=== PATIENT | female | born 1930 | race Caucasian/White ===

== ENCOUNTER → 2016-12-04 | Outpatient (CLI) | payer OTHER ==
[~2016-12-04] MED LIST: CALC-51; LABE200T24 PO; LEVO125T5 PO; LOSA1TAB PO; METF-384 PO; MULT-506 PO; OMEG10007 PO; SIMV20TA2 PO
[2016-12-04 13:38] LABS: BLOOD UREA NITROGEN 19 mg/dl (7-18); BUN/CREATININE RATIO 19.3 (10-20); CARBON DIOXIDE 29 mmol/L (21-32); CHLORIDE 104 mmol/L (98-107); CREATININE 0.97 mg/dl (0.60-1.20); GLUCOSE 92 mg/dl (70-99); SODIUM 142 mmol/L (136-145)
[2016-12-04 13:42] LABS: CHOLESTEROL 169 mg/dl (0-200); CHOLESTEROL/HDL RATIO 2.5; HDL CHOLESTEROL 67 mg/dl; TRIGLYCERIDES 107 mg/dl (0-150); VERY LOW DENSITY LIPOPROT CALC 21 mg/dl
[2016-12-04 13:53] LABS: ESTIMATED AVERAGE GLUCOSE 134 mg/dl; HA1C FLAG Normal (Normal)
--- NOTE | 2016-12-08 07:57 | CODING QUERY MEDICAL NECESSITY ---
SUPPORTING DIAGNOSIS NEEDED A supporting diagnosis is required for the test/procedure performed on this patient in order for us to be reimbursed by the patient's insurance. Please provide a supporting diagnosis for the following test/procedure listed below next to the test name along with your signature. *If there is no additional diagnosis for this patient that would support the following test/procedure please document that below next to the test/procedure. Test(s)/Procedure(s) that require a supporting diagnosis: DOS 12/04 * Hba1c DIAGNOSIS: Provider Signature: Date: Thank you Yahaira Thacker [facility] Information Management Once completed, please kindly fax back to [phone] For questions please call [phone]
== END | disposition home or self-care (01) ==
LOC: C.LABSPEC 12:34
PROVIDERS: ATTEND Internal Medicine
DX: I10 Essential (primary) hypertension (principal); E78.5 Hyperlipidemia, unspecified; E66.9 Obesity, unspecified; E11.9 Type 2 diabetes mellitus without complications

== ENCOUNTER → 2017-04-23 | Outpatient (CLI) | payer OTHER ==
[2017-04-23 16:22] LABS: BASO % 0.3 %; BASO ABS # 0.03 K/uL (0-0.2); COMPLETE YES; HEMATOCRIT 41.9 % (37-47); IG% 0.1 %; LYMPH % 18.7 %; LYMPH ABS # 1.61 K/uL (1.2-3.4); MEAN CELL VOLUME 91.7 fL (80-100); MEAN CORPUSCULAR HEMOGLOBIN 30.9 pg (25-34); MEAN CORPUSCULAR HGB CONC 33.7 g/dl (32-36); MEAN PLATELET VOLUME 11.7 fL (7.4-10.4); NEUT % 72.9 %; PLATELET COUNT 198 K/uL (130-400); RED BLOOD COUNT 4.57 M/uL (4.2-5.4); WHITE BLOOD COUNT 8.62 K/uL (4.8-10.8)
[2017-04-23 16:32] LABS: ALT/SGPT 15 U/L (12-78); AST/SGOT 13 U/L (15-37); BLOOD UREA NITROGEN 14 mg/dl (7-18); BUN/CREATININE RATIO 15.7 (10-20); CALCIUM 8.8 mg/dl (8.5-10.1); CARBON DIOXIDE 30 mmol/L (21-32); CHLORIDE 106 mmol/L (98-107); GLUCOSE 134 mg/dl (70-99); POTASSIUM 3.9 mmol/L (3.5-5.1); SODIUM 143 mmol/L (136-145)
[2017-04-23 16:43] LABS: ALB/GLOB RATIO 1.5 (0.9-2); ALKALINE PHOSPHATASE 92 U/L (45-117); THYROID STIMULATING HORMONE 0.021 uIu/ml (0.300-4.500)
[2017-04-24 06:46] LABS: ESTIMATED AVERAGE GLUCOSE 137 mg/dl; HA1C FLAG Normal (Normal)
--- NOTE | 2017-05-19 13:10 | CODING QUERY MEDICAL NECESSITY ---
SUPPORTING DIAGNOSIS NEEDED A supporting diagnosis is required for the test/procedure performed on this patient in order for us to be reimbursed by the patient's insurance. Please provide a supporting diagnosis for the following test/procedure listed below next to the test name along with your signature. *If there is no additional diagnosis for this patient that would support the following test/procedure please document that below next to the test/procedure. Test(s)/Procedure(s) that require a supporting diagnosis: * VITAMIN B12 DIAGNOSIS: Provider Signature: Date: Thank you Gloria [facility] [place] Information [facility] Once completed, please kindly fax back to [phone] For questions please call [phone]
== END | disposition home or self-care (01) ==
LOC: C.LABSPEC 15:00
PROVIDERS: ATTEND Internal Medicine
DX: E11.9 Type 2 diabetes mellitus without complications (principal); R53.83 Other fatigue; R41.89 Other symptoms and signs involving cognitive functions and awareness; F03.90 Unspecified dementia, unspecified severity, without behavioral disturbance, psychotic disturbance, mood disturbance, and anxiety

== ENCOUNTER → 2017-10-19 | Outpatient (CLI) | payer OTHER ==
[2017-10-19 18:33] LABS: BASO % 0.2 %; BASO ABS # 0.02 K/uL (0-0.2); COMPLETE YES; EOS % 1.3 %; HEMATOCRIT 41.3 % (37-47); IG% 0.1 %; LYMPH % 27.8 %; LYMPH ABS # 2.44 K/uL (1.2-3.4); MEAN CORPUSCULAR HEMOGLOBIN 30.4 pg (25-34); MEAN CORPUSCULAR HGB CONC 34.1 g/dl (32-36); MEAN PLATELET VOLUME 10.8 fL (7.4-10.4); MONO % 8.4 %; NEUT % 62.2 %; PLATELET COUNT 209 K/uL (130-400); RED BLOOD COUNT 4.64 M/uL (4.2-5.4); WHITE BLOOD COUNT 8.77 K/uL (4.8-10.8)
[2017-10-19 18:42] LABS: ALT/SGPT 14 U/L (12-78); AST/SGOT 13 U/L (15-37); BLOOD UREA NITROGEN 21 mg/dl (7-18); BUN/CREATININE RATIO 20.7 (10-20); CARBON DIOXIDE 29 mmol/L (21-32); CHLORIDE 103 mmol/L (98-107); CREATININE 1.03 mg/dl (0.60-1.20); GLUCOSE 104 mg/dl (70-99); POTASSIUM 3.9 mmol/L (3.5-5.1); SODIUM 141 mmol/L (136-145)
[2017-10-19 18:53] LABS: ALB/GLOB RATIO 1.4 (0.9-2); ALKALINE PHOSPHATASE 91 U/L (45-117); THYROID STIMULATING HORMONE 0.072 uIu/ml (0.300-4.500)
[2017-10-20 06:33] LABS: ESTIMATED AVERAGE GLUCOSE 140 mg/dl; HA1C FLAG Normal (Normal)
== END | disposition home or self-care (01) ==
LOC: C.LABSPEC 17:52
PROVIDERS: ATTEND Internal Medicine
DX: I10 Essential (primary) hypertension (principal); E11.9 Type 2 diabetes mellitus without complications; E03.9 Hypothyroidism, unspecified; R41.3 Other amnesia

== ENCOUNTER → 2017-10-20 | Outpatient (CLI) | payer OTHER ==
[2017-10-20 18:40] LABS: URINE APPEARANCE CLEAR (CLEAR); URINE BILIRUBIN NEG (NEG); URINE COLOR YELLOW; URINE NITRITE NEG (NEG); URINE SPECIFIC GRAVITY 1.023 (1.000-1.030); UROBILINOGEN NEG (NEG)
[2017-10-20 18:46] LABS: MANUAL MICROSCOPIC REQUIRED? NO; REVIEW REQ? NO
== END | disposition home or self-care (01) ==
LOC: C.LABSPEC 17:44
PROVIDERS: ATTEND Internal Medicine
DX: N39.0 Urinary tract infection, site not specified (principal)

== ENCOUNTER → 2017-10-28 | Outpatient (CLI) | payer OTHER ==
[~2017-10-28] MED LIST changes: +OPTIRAY 320 IV PRN
--- NOTE | 2017-10-28 09:40 | DIAGNOSTIC IMAGING REPORT ---
CT SCAN OF THE BRAIN COMBO CLINICAL HISTORY: Memory loss. Mental status change. COMPARISON STUDY: CT angiogram of the brain dated 03/23/2016. TECHNIQUE: Axial CT scan of the brain is performed from the vertex to the skull base before and following the IV administration of 94 cc of Optiray 320. IV contrast was administered without complication. CT DOSE: 1074.96 mGy.cm FINDINGS: Brain parenchyma: There are age-related involutional changes noting moderate patchy subcortical and periventricular microangiopathic change. There is no hemorrhage, mass effect, or evidence of acute territorial ischemia by CT criteria. Velez-white matter is preserved. No extra-axial fluid collection is seen. A 1.5 cm lipoma is incidentally noted along the midline falx at the vertex. Ventricles, sulci, cisterns: Prominent secondary to involutional change. Intracranial vasculature: There is atherosclerotic calcification of the cavernous carotid and vertebral arteries. Calvarium: Unremarkable. Sinuses and mastoids: The visualized paranasal sinuses are clear. The mastoid air cells are well pneumatized. Orbits: The bony orbits are grossly intact. IMPRESSION: Senescent changes as above with no hemorrhage, enhancing mass, or evidence of acute territorial ischemia by CT criteria. Electronically signed by: García Avila M.D. 10/28/2017 9:38 AM Dictated Date/Time: 10/28/2017 9:35 AM
== END | disposition home or self-care (01) ==
LOC: C.CTS 09:11
PROVIDERS: ATTEND Internal Medicine
DX: R41.82 Altered mental status, unspecified (principal)

== ENCOUNTER → 2018-02-25 | Outpatient (CLI) | payer OTHER ==
[~2018-02-25] MED LIST changes: -OPTIRAY 320 IV PRN
[2018-02-25 17:45] LABS: BLOOD UREA NITROGEN 17 mg/dl (7-18); CALCIUM 9.2 mg/dl (8.5-10.1); CARBON DIOXIDE 31 mmol/L (21-32); CREATININE 0.98 mg/dl (0.60-1.20); GLUCOSE 158 mg/dl (70-99); SODIUM 138 mmol/L (136-145)
== END | disposition home or self-care (01) ==
LOC: C.LABSPEC 16:39
PROVIDERS: ATTEND Internal Medicine
DX: E11.9 Type 2 diabetes mellitus without complications (principal); I10 Essential (primary) hypertension; E03.9 Hypothyroidism, unspecified

== ENCOUNTER → 2018-06-28 | Outpatient (CLI) | payer OTHER ==
[~2018-06-28] MED LIST changes: -LABE200T24 PO; +LABE200T5 PO
[2018-06-28 17:52] LABS: BASO % 0.7 %; BASO ABS # 0.04 K/uL (0-0.2); EOS ABS # 0.06 K/uL (0-0.5); HEMATOCRIT 41.9 % (37-47); HEMOGLOBIN 14.1 g/dL (12.0-16.0); LYMPH % 32.9 %; LYMPH ABS # 1.99 K/uL (1.2-3.4); MEAN CELL VOLUME 90.9 fL (80-100); MEAN CORPUSCULAR HEMOGLOBIN 30.6 pg (25-34); MEAN CORPUSCULAR HGB CONC 33.7 g/dl (32-36); MEAN PLATELET VOLUME 11.4 fL (7.4-10.4); MONO % 6.8 %; MONO ABS # 0.41 K/uL (0.11-0.59); NEUT % 58.6 %; NEUT ABS # 3.54 K/uL (1.4-6.5); PLATELET COUNT 189 K/uL (130-400); RED CELL DISTRIBUTION WIDTH CV 13.2 % (11.5-14.5); RED CELL DISTRIBUTION WIDTH SD 43.6 fL (36.4-46.3); WHITE BLOOD COUNT 6.04 K/uL (4.8-10.8)
[2018-06-28 18:25] LABS: ALBUMIN 4.2 gm/dl (3.4-5.0); ALKALINE PHOSPHATASE 88 U/L (45-117); ALT/SGPT 15 U/L (12-78); AST/SGOT 15 U/L (15-37); BLOOD UREA NITROGEN 16 mg/dl (7-18); CALCIUM 8.6 mg/dl (8.5-10.1); CARBON DIOXIDE 27 mmol/L (21-32); CHOLESTEROL 164 mg/dl (0-200); CREATININE 1.04 mg/dl (0.60-1.20); GLUCOSE 123 mg/dl (70-99); LDL CHOLESTEROL (DIRECT) 89 mg/dl; SODIUM 140 mmol/L (136-145); TOTAL PROTEIN 7.2 gm/dl (6.4-8.2)
[2018-06-29 06:36] LABS: HEMOGLOBIN A1C 6.4 % (4.5-5.6)
== END | disposition home or self-care (01) ==
LOC: C.LABSPEC 17:25
PROVIDERS: ATTEND Internal Medicine
DX: I10 Essential (primary) hypertension (principal); E78.5 Hyperlipidemia, unspecified; E11.9 Type 2 diabetes mellitus without complications; E03.9 Hypothyroidism, unspecified

== ENCOUNTER 2019-12-05 13:25 | Inpatient (IN) ==
--- OUTSIDE RECORDS SUMMARY | 2019-12-05 13:30 | External Medical Summary | Continuity of Care Document ---
:1930 Author Name Kirsten Zabala Address Unavailable Unavailable , Care Team Providers Name Role Phone Unavailable Unavailable Unavailable Cortney Lancaster M.D. Unavailable [email or web address] Unavailable Unavailable Unavailable Unavailable Unavailable Problems Female genital symptoms (625.9) (N94.9) Hypertension (401.9) (I10) Otitis externa (380.10) (H60.90) Sensorineural hearing loss (389.10) (H90.5) Eustachian tube dysfunction (381.81) (H69.80) Hypercholesterolemia (272.0) (E78.00) Cerumen impaction (380.4) (H61.20) Encounter for routine gynecological examination (V72.31) (Z0 1.419) Hearing loss (389.9) (H91.90) Conductive hearing loss (389.00) (H90.2) Hypothyroidism (244.9) (E03.9) Diabetes mellitus (250.00) (E11.9) Functional Status Hearing loss Allergies and Adverse Reactions No Known Drug Allergies (Allergy) Medications metFORMIN HCl - 500 MG Oral Tablet , M.D. Refills: 0 Simvastatin 20 MG Oral Tablet , M.D. Refills: 0 Levothyroxine Sodium 125 MCG Oral Tablet , M.D. Refills: 0 Labetalol HCl - 200 MG Oral Tablet , M.D. Refills: 0 Calcium 600 + D TABS , M.D. Refills: 0 Multivitamins TABS , M.D. Refills: 0 Fish Oil OIL , M.D. Refills: 0 Triamcinolone Acetonide 0.5 % External C ream; APPLY SPARINGLY AND MASSAGE IN TWICE DAILY. Vj Lancaster Start: 18-Mar-2011 Quantity: 2 15 GM Tube Refills: 2 Procedures History of Total Abdominal Hysterectomy Status: Completed History of Biopsy Breast Open Status: Co mpleted History of Complete Colonoscopy Status: Completed Immunizations Influenza Comments:denies rece iving in 2010 Social History - Smoking Status Never smoker Plan of Treatment Planned Observations Planned Goals not documented Results No Known Results Results not documented
[2019-12-05 14:12] LABS: Hematocrit (blood only) 39.5 % (37-47); Hemoglobin 13.8 g/dL (12.0-16.0); Immature Granulocytes # (auto) 0.06 K/uL (0.00-0.02); Immature Granulocytes % (auto) 0.5 %; Lymphocytes # (auto) 0.68 K/uL (1.2-3.4); Lymphocytes % (auto) 5.3 %; Mean Corpuscular Hemoglobin 30.9 pg (25-34); Mean Corpuscular Hgb Conc 34.9 g/dL (32-36); Mean Corpuscular Volume 88.6 fL (80-100); Mean Platelet Volume 10.2 fL (7.4-10.4); Monocytes # (auto) 1.12 K/uL (0.11-0.59); Monocytes % (auto) 8.8 %; Neutrophils # (auto) 10.94 K/uL (1.4-6.5); Neutrophils % (auto) 85.4 %; Platelet Count 155 K/uL (130-400); RDW Coefficient of Variation 12.8 % (11.5-14.5); RDW Standard Deviation 41.4 fL (36.4-46.3); Red Blood Count 4.46 M/uL (4.2-5.4)
[2019-12-05] MEDS ORDERED: ACETAMINOPHEN 325 MG TAB PO STA (14:13)
[2019-12-05] MEDS ORDERED: SODIUM CHLORIDE 0.9% 1000ML 1,000 ML IV SCH ×2 (14:15→21:14)
[2019-12-05 14:25] LABS: Albumin Level 3.8 gm/dl (3.4-5.0); BUN Creatinine Ratio 22.7 (10-20); Creatinine Clr Calc Pharmacy 34.6 ml/min; Est GFR (African American) 59.4; Est GFR (Non-African American) 51.2; Potassium 3.8 mmol/L (3.5-5.1)
[2019-12-05 14:28] LABS: Albumin Globulin Ratio 1.1 (0.9-2); Bilirubin,Total 1.4 mg/dl (0.2-1); Globulin 3.3 gm/dl (2.5-4.0); Total Protein 7.1 gm/dl (6.4-8.2)
[2019-12-05 14:29] LABS: INR 1.1 (0.9-1.1); Partial Thromboplastin Time 26.2 Seconds (21.0-31.0); Prothrombin Time 11.5 Seconds (9.0-12.0)
--- NOTE | 2019-12-05 15:22 | CT Scan Report ---
CT head/brain wo con CT DOSE: HISTORY: Trauma. Mental status change. s/p fall, likely down stairs TECHNIQUE: Multiaxial CT images of the head were performed without the use of intravenous contrast. A dose lowering technique was utilized adhering to the principles of ALARA. Comparison: None. Findings: Significant mucosal thickening right maxillary sinus. Mild mucosal thickening ethmoid sinus es. Mastoid air cells are considered clear. Chronic and age-related changes of the brain are unaltered from the prior exam. No evidence for acute intracranial hemorrhage. No midline shift. Impression: No acute intracranial abnormality. Chronic and age-related change. ACT 112: Negative or not required by law. The above report was generated using voice recognition software. It may contain grammatical, syntax or spelling errors. Electronically signed by: Jay Mattson M.D. 12/05/2019 3:21 PM
--- NOTE | 2019-12-05 15:26 | CT Scan Report ---
CT cervical spine wo con CT DOSE: 924.94 mGy.cm HISTORY: Trauma. Pain. s/p fall, likely down stairs TECHNIQUE: Multiaxial CT images of the cervical spine were performed and reformatted in the sagittal and coronal plane without the use of contrast. A dose lowering technique was utilized adhering to e principles of ALARA. COMPARISON: None. FINDINGS: Vertebral body stature is unremarkable. No evidence for vertebral body compression deformit y. There are fractures of the spinous processes of C5-C6 and C7. The posterior and lateral elements are intact throughout. Lumbar apices show minimal apical fibrotic change. IMPRESSION: 1. Fractures of the spinous processes of C5, C6, and C7.. 2. No additional acute bony abnormality. 3. No evidence for compression deformity. ACT 112: Negative or not required by law. The above report was generated using voice recognition software. It may contain grammatical, syntax or spelling errors. Electronically signed by: Jay Mattson M.D. 12/05/2019 3:24 PM
--- NOTE | 2019-12-05 15:44 | Electrocardiogram Report ---
Test Reason : Blood Pressure : / mmHG Vent. Rate : 068 BPM Atrial Rate : 068 BPM P-R Int : 154 ms QRS Dur : 074 ms QT Int : 400 ms P-R-T Axes : 048 030 058 degrees QTc Int : 425 ms Normal sinus rhythm Nonspecific T wave abnormality Abnormal ECG When compared with ECG of 23-MAR-2016 11:43, T wave inversion no longer evident in Inferior leads Confirmed by Edward Coleman ([id number]) on 12/05/2019 3:44:20 PM Referred By: Confirmed By:Edward Coleman
--- NOTE | 2019-12-05 16:14 | Emergency Department Note ---
Entered by Nehal Clemente acting as a scribe for History of Present Illness General Chief complaint: Fall Time Seen by Provider: 12/05/19 14:02 History of Present Illness Provider complaint: fall Onset (ago): unknown Pain Consistency: + other (episode) Maximum Pain Intensity: 5 Quality: + other (fall) Associated symptoms: + denies other symptoms (abdominal pain, head pain) and + other (found at bottom of stairs covered in urine, fell down approximately 5-6 steps, left wrist pain, left rib pain); no chest pain and no shortness of breath Treatments prior to arrival: none The patient is an 89 year old white female w/ PMHx of dementia and type 2 diabetes who presents to the ED w/ CC of an episode of a fall beginning at an unknown time. The patients son states that he called the patient at 1115 this morning but she did not answer the phone. Per son, when he checked on the patie nt at 1130, he found her laying at the bottom of the staircase saturated in urine. The patient states that she does not remember falling or hitting her head. The patients son states that he believes the patient fell down approximately 5-6 steps. The patient states that she has some left wrist and l eft rib pain. The patient denies abdominal pain, chest pain, head pain and shortness of breath. The patient states that she has not yet eaten anything today. The patient denies receiving any treatments prior to arrival. Per son, the patient seemed totally fine yesterday when he checked on her. Home Medications Home Medications Medication Instructions Recorded Confirmed Type escitalopram oxalate 10 mg PO DAILY 12/05/19 12/05/19 History levothyroxine 125 mcg PO DAILY 12/05/19 12/05/19 History losartan 25 mg PO DAILY 12/05/19 12/05/19 History metformin 500 mg PO PM 12/05/19 12/05/19 History simvastatin 20 mg PO HS 12/05/19 12/05/19 History Allergies Allergy/AdvReac Type Severity Reaction Status Date / Time No Known Allergies Allergy Unverified 12/05/19 13:50 Past Med/Surg History Social History Preferred Language: Faroese Communication Ability: Effective Supervisor Functional Testing Required: No Beliefs That Will Affect Care: None Current Living Situation: Alone Other Information That Helps Us Care for You: No Feels Safe at Home: Yes Safety Concerns: Feels Safe At This Time Smoking Status: Never smoker Hx Alcohol Use: No Hx Substance Use: No Review of Systems See HPI for pertinent positives & negatives. and A total of 10 systems reviewed and were otherwise negative Physical Exam Vital Signs Vital Signs - 24 hr 12/05/19 13:33 12/05/19 14:30 12/05/19 16:17 Temperature 36.4 C L Temperature Source Oral Pulse Rate 77 Pulse Rate [Apical] 70 77 Pulse Rhythm Regular Pulse Rhythm [Apical] Regular Respiratory Rate 17 17 18 Respiratory Effort / Characteristics Non-Labored Spontaneous Non-Labored Spontaneous Respiratory Depth Normal Normal Respiratory Pattern Regular Regular Blood Pressure 168/88 H Blood Pressure [Left Arm] 198/96 H 207/86 H Blood Pressure Mean 114 Blood Pressure Mean [Left Arm] 130 126 Pulse Oximetry 94 93 95 Oxygen Delivery Method Room Air Room Air Sepsis Recent Fever Within 48 Hours No Sepsis New/Unexplained Change in Mental Status No Sepsis Action Taken by Nursing No Action Required 12/05/19 19:34 Temperature Temperature Source Pulse Rate Pulse Rate [Apical] 76 Pulse Rhythm Pulse Rhythm [Apical] Respiratory Rate 18 Respiratory Effort / Characteristics Respiratory Depth Respiratory Pattern Blood Pressure Blood Pressure [Left Arm] 176/90 H Blood Pressure Mean Blood Pressure Mean [Left Arm] 118 Pulse Oximetry 99 Oxygen Delivery Method Sepsis Recent Fever Within 48 Hours Sepsis New/Unexplained Change in Mental Status Sepsis Action Taken by Nursing GENERAL: Well appearing, well nourished, NAD, non-toxic. EYE EXAM: Normal conjunctiva. PERRL, no anisocoria and EOM's grossly intact w/o pain. OROPHARYNX: Moist mucous membranes. Grossly normal dentition. NECK: Supple, no nuchal rigidity, no adenopathy, non-tender. No signs of meningismus. No midline c-spine TTP. LUNGS: Clear to auscultation. Normal chest wall mechanics. HEART: NSR, no MRG. CHEST: Left lateral chest wall tenderness without bruising or crepitus. ABDOMEN: Abdomen soft, non-tender, normo-active bowel sounds, no masses, no rebound or guarding. BACK: No CVA TTP. SKIN: No rashes and no bruising. UPPER EXTREMITIES: Bilateral wrist ecchymosis TTP with mild swelling to the left wrist. LOWER EXTREMITIES: No obvious deformities to the lower extremities. No pitting edema. No calf pain. NEURO EXAM: A&O x3, cranial nerves II-XII grossly intact, normal speech, moves all 4 extremities on command w/o issue. Procedures Free Text Procedures Definitive Fracture Care note: Dx: L radial head fracture Plan: Immobilization, rest, ice, elevation, analgesia, orthopedic follow up. Splinting Note: Dx: L radial head fracture Procedure: Splinting Indication: L radial head fracture Verbal consent obtained. Risks and benefits were explained with the usual customary discussion. The injured extremity was identified. The patient was prepped and measured for the placement of a sugar tong ortho-glass splint. Splint applied in the standard fashion over a layer of webril and secured using an elastic bandage w/ the assistance of the electronic service technician. Set into a position of function. Normal neurovascular status after placement verified by me. The p atient tolerated the procedure well and the care of the splint was discussed with the patient/family. No complications. Definitive Fracture Care note: Dx: R radial head fracture Plan: Immobilization, rest, ice, elevation, analgesia, orthopedic follow. Splinting Note: Dx: R radial head fracture Procedure: Indication: R radial head fracture Verbal consent obtained. Risks and benefits were explained with the usual customary discussion. The injured extremity was identified. The patient was prepped and measured for the placement of a wrist up volar ortho-glass splint. Splint applied in the standard fashion over a layer of webril and secured using an elastic bandage w/ assistance of the electronic service technician. Set into a position of function. Normal neurovascular status after placement verified by me. The patient tolerated the procedure well and the care of the splint was discussed with the patient/family. No complications. Course Course 1404: Past medical records reviewed. The patient was evaluated in room C04. A complete history and physical exam was performed. 1410: The patient was put on a surveillance monitor at this time. 1652: I updated the patient on the test results. She is resting comfortably. 1654: Case management will talk to the patient in regard to admission. 1708: I discussed the patients case with Dr. Randall [facility] Hospitalist. She will evaluate the patient for further management. Consultations Consultation #1: I discussed the patients case with Dr. Randall [facility]. She will evaluate the patient for further management. Time: 17:08 Administered Medications Calcitonin Cascade (Fortical) 1 sprays NA DAILY WILL Stop: 01/04/20 21:13 Last Admin: 12/05/19 21:40 Dose: 1 sprays Documented by: [id number] Escitalopram Oxalate (Lexapro Tab) 10 mg PO DAILY WILL Stop: 01/04/20 21:13 Last Admin: 12/05/19 21:40 Dose: 10 mg Documented by: [id number] Sodium Chloride (Nss 1000ml) 1,000 mls @ 80 mls/hr IV .[id number] WILL Stop: 12/06/19 09:43 Last Admin: 12/05/19 21:40 Dose: 80 mls/hr Documented by: [id number] Losartan Potassium (Cozaar) 25 mg PO DAILY WILL Stop: 01/04/20 21:13 Last Admin: 12/05/19 21:40 Dose: 25 mg Documented by: [id number] Simvastatin (Zocor) 20 mg PO HS WILL Stop: 01/04/20 21:13 Last Admin: 12/05/19 21:55 Dose: 20 mg Documented by: [id number] Discontinued Medications Acetaminophen (Tylenol) 650 mg PO NOW STA Stop: 12/05/19 14:14 Last Admin: 12/05/19 14:24 Dose: 650 mg Documented by: [id number] Sodium Chloride (Nss 1000ml) 1,000 mls @ 999 mls/hr IV .[id number] WILL Stop: 12/05/19 15:15 Last Infusion: 12/05/19 16:42 Dose: 0 mls/hr Documented by: [id number] Admin: 12/05/19 14:24 Dose: 999 mls/hr Documented by: [id number] Medical Decision Making Differential Diagnosis Differential diagnosis: Etiologies such as metabolic, infection, hypo/hyperglycemia, electrolyte abnormalities, cardiac sources, intracerebral event, toxicologic, neurologic, fracture, sprain, strain, dehydration as well as others were entertained. Medical Records Attestation: I reviewed the patient's medical records. Home Medications Current Medication List: was personally reviewed by me Laboratory Data Attestation: I reviewed the patient's lab results. Result diagrams: 12/05/19 13:58 12/05/19 13:58 Lab Results 12/05/19 12/05/19 12/05/19 Range/Units 13:58 13:58 13:58 WBC 12.80 H (4.8-10.8) K/uL RBC 4.46 (4.2-5.4) M/uL Hgb 13.8 (12.0-16.0) g/dL Hct 39.5 (37-47) % MCV 88.6 (80-100) fL MCH 30.9 (25-34) pg MCHC 34.9 (32-36) g/dL RDW Std Deviation 41.4 (36.4-46.3) fL RDW Coeff of Hunter 12.8 (11.5-14.5) % Plt Count 155 (130-400) K/uL MPV 10.2 (7.4-10.4) fL Immature Gran % (Auto) 0.5 % Neut % (Auto) 85.4 % Lymph % (Auto) 5.3 % [place] % (Auto) 8.8 % Eos % (Auto) 0.0 % Baso % (Auto) 0.0 % Immature Gran # (Auto) 0.06 H (0.00-0.02) K/uL Neut # (Auto) 10.94 H (1.4-6.5) K/uL Lymph # (Auto) 0.68 L (1.2-3.4) K/uL [place] # (Auto) 1.12 H (0.11-0.59) K/uL Eos # (Auto) 0.00 (0-0.5) K/uL Baso # (Auto) 0.00 (0-0.2) K/uL PT 11.5 (9.0-12.0) Seconds INR 1.1 (0.9-1.1) APTT 26.2 (21.0-31.0) Seconds PTT Ratio 1.0 Sodium 137 (136-145) mmol/L Potassium 3.8 (3.5-5.1) mmol/L Chloride 101 (98-107) mmol/L Carbon Dioxide 28 (21-32) mmol/L Anion Gap 8.0 (3-11) BUN 23 H (7-18) mg/dl Creatinine 0.99 (0.6-1.2) mg/dl Est Cr Clr Drug Dosing 34.6 ml/min Est GFR ( Amer) 59.4 Est GFR (Non-Af Amer) 51.2 BUN/Creatinine Ratio 22.7 H (10-20) Glucose 184 H (70-99) mg/dl Calcium 9.0 (8.5-10.1) mg/dl Total Bilirubin 1.4 H (0.2-1) mg/dl AST 44 H (15-37) U/L ALT 26 (12-78) U/L Alkaline Phosphatase 99 (45-117) U/L Troponin I (0-0.045) ng/ml Total Protein 7.1 (6.4-8.2) gm/dl Albumin 3.8 (3.4-5.0) gm/dl Globulin 3.3 (2.5-4.0) gm/dl Albumin/Globulin Ratio 1.1 (0.9-2) Urine Color Urine Appearance (Clear) Urine pH (4.5-7.5) Ur Specific [place] (1.000-1.030) Urine Protein (Negative) Urine Glucose (UA) (Negative) Urine Ketones (Negative) Urine Blood (Negative) Urine Nitrite (Negative) Urine Bilirubin (Negative) Urine Urobilinogen (Negative) Ur Leukocyte Esterase (Negative) Urine WBC (Auto) (0-5) /hpf Urine RBC (Auto) (0-4) /hpf U Hyaline Cast (Auto) (0-5) /lpf U Epithel Cells (Auto) (0-5) /lpf Urine Bacteria (Auto) (Negative) 12/05/19 12/05/19 Range/Units 13:58 17:04 WBC (4.8-10.8) K/uL RBC (4.2-5.4) M/uL Hgb (12.0-16.0) g/dL Hct (37-47) % MCV (80-100) fL MCH (25-34) pg MCHC (32-36) g/dL RDW Std Deviation (36.4-46.3) fL RDW Coeff of Hunter (11.5-14.5) % Plt Count (130-400) K/uL MPV (7.4-10.4) fL Immature Gran % (Auto) % Neut % (Auto) % Lymph % (Auto) % [place] % (Auto) % Eos % (Auto) % Baso % (Auto) % Immature Gran # (Auto) (0.00-0.02) K/uL Neut # (Auto) (1.4-6.5) K/uL Lymph # (Auto) (1.2-3.4) K/uL [place] # (Auto) (0.11-0.59) K/uL Eos # (Auto) (0-0.5) K/uL Baso # (Auto) (0-0.2) K/uL PT (9.0-12.0) Seconds INR (0.9-1.1) APTT (21.0-31.0) Seconds PTT Ratio Sodium (136-145) mmol/L Potassium (3.5-5.1) mmol/L Chloride (98-107) mmol/L Carbon Dioxide (21-32) mmol/L Anion Gap (3-11) BUN (7-18) mg/dl Creatinine (0.6-1.2) mg/dl Est Cr Clr Drug Dosing ml/min Est GFR ( Amer) Est GFR (Non-Af Amer) BUN/Creatinine Ratio (10-20) Glucose (70-99) mg/dl Calcium (8.5-10.1) mg/dl Total Bilirubin (0.2-1) mg/dl AST (15-37) U/L ALT (12-78) U/L Alkaline Phosphatase (45-117) U/L Troponin I < 0.015 (0-0.045) ng/ml Total Protein (6.4-8.2) gm/dl Albumin (3.4-5.0) gm/dl Globulin (2.5-4.0) gm/dl Albumin/Globulin Ratio (0.9-2) Urine Color Yellow Urine Appearance Cloudy A (Clear) Urine pH 5.0 (4.5-7.5) Ur Specific [place] 1.023 (1.000-1.030) Urine Protein 2+ H (Negative) Urine Glucose (UA) 1+ H (Negative) Urine Ketones Negative (Negative) Urine Blood 1+ H (Negative) Urine Nitrite Negative (Negative) Urine Bilirubin Negative (Negative) Urine Urobilinogen Negative (Negative) Ur Leukocyte Esterase 1+ H (Negative) Urine WBC (Auto) 10-30 H (0-5) /hpf Urine RBC (Auto) 0-4 (0-4) /hpf U Hyaline Cast (Auto) 1-5 (0-5) /lpf U Epithel Cells (Auto) 20-30 H (0-5) /lpf Urine Bacteria (Auto) Negative (Negative) Imaging Data Radiologist's Impression: Radiology results as stated below per my review and the radiologist's interpretation: CT head/brain wo con CT DOSE: HISTORY: Trauma. Mental status change. s/p fall, likely down stairs TECHNIQUE: Multiaxial CT images of the head were performed without the use of intravenous contrast. A dose lowering technique was utilized adhering to the principles of ALARA. Comparison: None. Findings: Significant mucosal thickening right maxillary sinus. Mild mucosal thickening ethmoid sinuses. Mastoid air cells are considered clear. Chronic and age-related changes of the brain are unaltered from the prior exam. No evidence for acute intracranial hemorrhage. No midline shift. Impression: No acute intracranial abnormality. Chronic and age-related change. ACT 112: Negative or not required by law. The above report was generated using voice recognition software. It may contain grammatical, syntax or spelling errors. Electronically signed by: Jay Mattson M.D. 12/05/2019 3:[address] cervical spine wo con CT DOSE: 924.94 mGy.cm HISTORY: Trauma. Pain. s/p fall, likely down stairs TECHNIQUE: Multiaxial CT images of the cervical spine were performed and reformatted in the sagittal and coronal plane without the use of contrast. A dose lowering technique was utilized adhering to the principles of ALARA. COMPARISON: None. FINDINGS: Vertebral body stature is unremarkable. No evidence for vertebral body compression deformity. There are fractures of the spinous processes of C5-C6 and C7. The posterior and lateral elements are intact throughout. Lumbar apices show minimal apical fibrotic change. IMPRESSION: 1. Fractures of the spinous processes of C5, C6, and C7.. 2. No additional acute bony abnormality. 3. No evidence for compression deformity. ACT 112: Negative or not required by law. The above report was generated using voice recognition software. It may contain grammatical, syntax or spelling errors. Electronically signed by: Jay Mattson M.D. 12/05/2019 3:24 PM XR ribs LT min 3V w CXR1V CLINICAL HISTORY: fall down stairs trauma. Pain. COMPARISON STUDY: No previous studies for comparison. FINDINGS: Findings consistent with old healed fractures of the left third and fourth ribs. Findings consistent with old fracture of the left 10th rib. Nondisplaced acute fractures left sixth seventh and eighth ribs. Lungs are clear. No evidence for pneumothorax. IMPRESSION: 1. Nondisplaced acute fractures left sixth seventh and eighth ribs. 2. No evidence of pneumothorax. 3. Multiple additional old healed left rib fractures. ACT 112: Negative or not required by law. The above report was generated using voice recognition software. It may contain grammatical, syntax or spelling errors. Electronically signed by: Jay Mattson M.D. 12/05/2019 4:22 PM XR wrist LT 2V CLINICAL HISTORY: pain and swelling trauma. Pain. COMPARISON: None. DISCUSSION: Comminuted fracture distal radius. Moderate dorsal angulation. No evidence for dislocation. Fracture extends to the articular surface. Degenerative change of all remaining bony structures. IMPRESSION: Comminuted fracture distal radius extending to the articular surface. Mild dorsal angulation. Soft tissue edema. ACT 112: Negative or not required by law. The above report was generated using voice recognition software. It may contain grammatical, syntax or spelling errors. Electronically signed by: Jay Mattson M.D. 12/05/2019 4:28 PM XR wrist RT 2V CLINICAL HISTORY: bruising noted trauma. Pain. COMPARISON: None. DISCUSSION: Nondisplaced comminuted fracture distal radius. Fracture extends to the articular surface. No significant displacement or distraction. Mild soft tissue edema. Mild generalized degenerative change of the remaining bony structures throughout. IMPRESSION: Nondisplaced comminuted fracture distal radius. Soft tissue edema. ACT 112: Negative or not required by law. The above report was generated using voice recognition software. It may contain grammatical, syntax or spelling errors. Electronically signed by: aJy Mattson M.D. 12/05/2019 4:27 PM ECG Data Attestation: I personally reviewed and interpreted this ECG as follows: Indication: + other (fall) Rate (beats per minute): 68 Rhythm: + normal sinus ECG Intervals/blocks: + Normal QRS, + Normal [place] and + Normal QT-c ECG Chilo: + Normal ECG ST segments: + T-wave inversions (V3, V4); no ST depression and no ST elevation ECG Findings: no PACs and no PVCs Comparison ECG Date: from (03/23/2016) Change: the following changes noted (TWI are old) Blood Pressure Blood Pressure Findings: Elevated blood pressure Blood Pressure Disposition: further management by hospitalist [facility] Narrative The patientThe patient is an 89 year old white female w/ PMHx of dementia and type 2 diabetes who presents to the ED w/ CC of an episode of a fall beginning at an unknown time. Patient was seen and evaluated the bedside. The patient did have a reported fall while at home. Known history of dementia and lives by herself. Was checked on by family. The patient did have blood work complete along with a CT of the head and cervical spine. The patient also did have some pain over the left lateral chest but clear breath sounds. The patient also did have some bilateral wrist ecchymosis and pain primarily in the left wrist. Patient blood work shows dehydration. Is a borderline elevated white count of 12. The patient's total bili Tenzin and AST are borderline elevated but the patient does not have any right upper quadrant pain. Troponin is negative. Urinalysis does not appear to be grossly infected. The patient's CT of the head was negative. CT cervical spine only showed spinous process fractures likely nonoperative and no signs of unstable fracture at this time. Patient does have multiple rib fractures but no pneumothorax. Patient's pain is controlled and not hypoxic. The patient's bilateral wrist fractures were splinted. Neurovascular intact thereafter. Given the concern for the patient's inability to care for herself at home and the fact the patient may not be placed I did speak the on-call hospitalist and further evaluate treat the patient. Impression & Plan Dehydration, Fall, Multiple rib fractures, Closed fracture of radial head, Fracture of radial head, left, closed, Closed fracture of spinous process of cervical vertebra Discharge Plan Visit Data *Final* Discharge Date/Time: 12/05/19 20:27 Chief Complaint: Fall ED Provider: Pedro Luis Garcia Discharge Problem: Dehydration, Fall, Multiple rib fractures, Closed fracture of radial head, Fracture of radial head, left, closed, Closed fracture of spinous process of cervical vertebra Patient Disposition: Admitted As Inpatient Discharge Instructions Interventions: ED Discharge Assessment Last Done: 12/05/19 20:27 Discharge Problem: Fall Qualifiers: Encounter type: initial encounter Qualified Code(s): W19.XXXA - Unspecified fa ll, initial encounter Multiple rib fractures Qualifiers: Encounter type: initial encounter Fracture type: closed Laterality: left Qualified Code(s): S22.42XA - Multiple fractures of ribs, left side, initial encounter for closed fracture Closed fracture of radial head Qualifiers: Encounter type: initial encounter Fracture alignment: nondisplaced Laterality: right Qualified Code(s): S52.124A - Nondisplaced fracture of head of right radius, initial encounter for closed fracture Fracture of radial head, left, closed Qualifiers: Encounter type: initial encounter Fracture alignment: nondisplaced Qualified Code(s): S52.125A - Nondisplaced fracture of head of left radius, initial encounter for closed fracture Closed fracture of spinous process of cervical vertebra Qualifiers: Encounter type: initial encounter Qualified Code(s): S12.9XXA - Fracture of neck, unspecified, initial encounter The scribe's documentation has been prepared under my direction and personally reviewed by me in its entirety. I confirm that the note above accurately reflects all work, treatment, procedures, and medical decision making performed by me.
--- NOTE | 2019-12-05 16:23 | XRay Report ---
XR ribs LT min 3V w CXR1V CLINICAL HISTORY: fall down stairs trauma. Pain. COMPARISON STUDY: No previous studies for comparison. FINDINGS: Findings consistent with old healed fractures of the left third and fourth ribs. Findings c onsistent with old fracture of the left 10th rib. Nondisplaced acute fractures left sixth seventh and eighth ribs. Lungs are clear. No evidence for pneumothorax. IMPRESSION: 1. Nondisplaced acute fractures left sixth seventh and eighth ribs. 2. No evidence of pneumothorax. 3. Multiple additional old healed left rib fractures. ACT 112: Negative or not required by law. The above report was generated using voice recognition software. It may contain grammatical, syntax or spelling errors. Electronically signed by: Jay Mattson M.D. 12/05/2019 4:22 PM
--- NOTE | 2019-12-05 16:28 | XRay Report ---
XR wrist RT 2V CLINICAL HISTORY: bruising noted trauma. Pain. COMPARISON: None. DISCUSSION: Nondisplaced comminuted fracture distal radius. Fracture extends to the articular surface . No significant displacement or distraction. Mild soft tissue edema. Mild generalized degenerative change of the remaining bony structures through out. IMPRESSION: Nondisplaced comminuted fracture distal radius. Soft tissue edema. ACT 112: Negative or not required by law. The above report was generated using voice recognition software. It may contain grammatical, syntax or spelling errors. Electronically signed by: Jay Mattson M.D. 12/05/2019 4:27 PM
--- NOTE | 2019-12-05 16:29 | XRay Report ---
XR wrist LT 2V CLINICAL HISTORY: pain and swelling trauma. Pain. COMPARISON: None. DISCUSSION: Comminuted fracture distal radius. Moderate dorsal angulation. No evidence for dislocatio n. Fracture extends to the articular surface. Degenerative change of all remaining bony structures. IMPRESSION: Comminuted fracture distal radius extending to the articular surface. Mild dorsal angulat ion. Soft tissue edema. ACT 112: Negative or not required by law. The above report was generated using voice recognition software. It may contain grammatical, syntax or spelling errors. Electronically signed by: Jay Mattson M.D. 12/05/2019 4:28 PM
[2019-12-05 17:23] LABS: Appearance Urine Cloudy (Clear); Bacteria Urine Automated Negative (Negative); Bilirubin Urine Negative (Negative); Blood Urine 1+ (Negative); Color Urine Yellow; Epithelial Cell Urine Auto 20-30 /lpf (0-5); Glucose Urine UA 1+ (Negative); Ketones Urine Negative (Negative); Leukocyte Esterase Urine 1+ (Negative); Nitrite Urine Negative (Negative); Protein Urine 2+ (Negative); Specific Gravity Urine 1.023 (1.000-1.030); Urobilinogen Urine Negative (Negative)
[2019-12-05 17:37] LABS: RBC Urine Automated 0-4 /hpf (0-4)
[2019-12-05] MEDS ORDERED: MAGNESIUM HYDROXIDE SUSP 30 ML UDC PO PRN (21:14)
[2019-12-05] MEDS ORDERED: GLUCOSE 10 TABS/TUBE PO PRN (21:14)
[2019-12-05] MEDS ORDERED: CARBOHYDRATES FOR HYPOGLYCEMIA PO PRN (21:14)
[2019-12-05] MEDS ORDERED: DEXTROSE 50% 50 ML SYRINGE IV PRN (21:14)
[2019-12-05] MEDS ORDERED: GLUCAGON FOR INJ 1 MG VIAL SQ PRN (21:14)
[2019-12-05] MEDS ORDERED: ALUMINUM/MAGNESIUM SUSP 30 ML UDC PO PRN (21:14)
[2019-12-05] MEDS ORDERED: POLYETHYLENE (MIRALAX) 17 GM PACK PO PRN (21:14)
[2019-12-05] MEDS ORDERED: GLUCOSE 40% GEL 15 GM TUBE PO PRN (21:14)
[2019-12-05] MEDS ORDERED: PHARMACY GLYCEMIC MGMT CONSULT PRN (21:30)
[2019-12-05] MEDS: ESCITALOPRAM OXALATE 10 MG TAB PO SCH (21:40)
[2019-12-05] MEDS: LOSARTAN POTASSIUM 25 MG TAB PO SCH (21:40)
[2019-12-05] MEDS: CALCITONIN SALMON NA 200 IU/AC 3.7 ML BTL SCH (21:40)
[2019-12-05] MEDS: SIMVASTATIN 20 MG TAB PO SCH (21:55)
[2019-12-06] MEDS: ACETAMINOPHEN 325 MG TAB PO PRN (00:02)
[2019-12-06] MEDS ORDERED: INSULIN ASPART 100 UNITS/ML 3 ML PEN SC SCH (04:00)
[2019-12-06] MEDS: LEVOTHYROXINE SODIUM 125 MCG TABLET PO SCH (05:43)
--- NOTE | 2019-12-06 07:26 | Orthopedic Consultation ---
Date of Consultation December 06, 2019 Assessment & Plan (1) Displaced fracture of distal end of left radius: With regards to the left wrist, it is slightly more displaced. It is still nonoperative. She is in a coaptation splint for now. I will see her in the office in 1 week. We will get repeat x-rays. I like to treat her in a simple volar splint or cast if possible to help improve her function. She can stay in her current splint for now and I will see her in the office in 1 week fo r her left wrist. Discharge instructions were placed in the discharge summary. Present on Admission?: Yes (2) Nondisplaced fracture of distal end of right radius: With regards to her right wrist, it is nondisplaced. It is nonoperative. I will likely just treat her in a cock-up wrist splint. She can stay in her current volar splint for now. I will see her in the office in 1 week. I will likely put her in a nice cock-up wrist splint in the office a week from now. Discharge instructions were placed in the discharge summary. Present on Admission?: Yes History of Present Illness Reason for Consultation: Bilateral distal radius fractures Attending Physician: Cynthia Patel MD History of Present Illness Kathy is a pleasant 89-year-old female who lives independently at home. Her is currently in the hospital but not returning home. She has friends and family that lives nearby. She is an independent ambulator without assistance. Unfortunately her son found her at the bottom of the stair yesterday. She does not recall falling. There were deformities of both of her wrist and she was having a lot of wrist pain. She came to the emergency room and radiographs demonstrated bilateral distal radius fractures. She was admitted to the hospitalist service. Both wrists were splinted. Orthopedics was consulted to evaluate and treat. Allergies Allergy/AdvReac Type Severity Reaction Status Date / Time No Known Allergies Allergy Unverified 12/05/19 13:50 Home Medications Home Medications Medication Instructions Recorded Confirmed Type escitalopram oxalate 10 mg PO DAILY 12/05/19 12/05/19 History levothyroxine 125 mcg PO DAILY 12/05/19 12/05/19 History losartan 25 mg PO DAILY 12/05/19 12/05/19 History metformin 500 mg PO PM 12/05/19 12/05/19 History simvastatin 20 mg PO HS 12/05/19 12/05/19 History Patient History Medical History Dementia Diabetes mellitus type 2, diet-controlled (Chronic) Surgical History H/O: hysterectomy (Resolved) Social History Preferred Language: Yakut Communication Ability: Effective 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 Beliefs That Will Affect Care: None Current Living Situation: Alone Other Information That Helps Us Care for You: No Feels Safe at Home: Yes Safety Concerns: Feels Safe At This Time Smoking Status: Never smoker Hx Alcohol Use: No Hx Substance Use: No Review of Systems Review of Systems: All systems reviewed & are unremarkable except as noted in HPI & below Physical Exam Constitutional: WD/WN, vitals as above Eyes: PERRL, conjunctivae normal, anicteric sclerae ENMT: external ear and nose normal, oropharynx normal Neck: trachea midline, no thyromegaly Respiratory: normal respiratory effort Cardiovascular: RRR, no murmur, no edema Gastrointestinal (Abdomen): normal bowel sounds, soft, nontender, no hepatosplenomegaly Musculoskeletal: On physical examination of the left wrist, there is a coaptation splint in place. She has active motion of her fingers. She does have some swelling. On physical examination of her right wrist there is a volar splint in place. She has active motion of her fingers. There is some swelling. I am unable to do any chute worker strength testing with her because of the splints. She has full range of motion of both of her elbows. On the remainder of the orthopedic physical examination, she has no pain with range of motion of her remaining joints and no pain to palpation over her long bones or bony prominences. Psychiatric: A+Ox3, euthymic affect Results & Data Vital Signs (Past 12 Hours) Vital Signs Temp Pulse Pulse Pulse Resp BP BP 12/06/19 03:20 37.1 C 71 18 175/72 H 12/06/19 00:01 12/05/19 23:54 37.5 C 76 17 183/87 H 12/05/19 22:20 74 12/05/19 21:39 72 189/73 H 12/05/19 21:13 71 12/05/19 21:11 37.8 C H 72 210/91 H 12/05/19 19:34 76 18 176/90 H Pulse Ox 12/06/19 03:20 98 12/06/19 00:01 94 12/05/19 23:54 89 L 12/05/19 22:20 12/05/19 21:39 90 12/05/19 21:13 12/05/19 21:11 92 12/05/19 19:34 99 Diagnostic Findings X-rays of the left wrist independently visualized demonstrate a moderately displaced left distal radius fracture. There is about 20 degrees of dorsal tilt. There is an interarticular segment. There is a loss of radial height on the AP view. X-ray report read by Dr. duque was read as a displaced and angulated left distal radius fracture X-rays of the right wrist show a nondisplaced right distal radius fracture. There is a nondisplaced intra-articular segment with it. X-ray report read by Dr. duque was read as a nondisplaced distal radius fracture with intra- articular extension. PG Care Time/CCT Total # of Minutes Spent Total Time Spent with Patient: Total time spent is greater than 50% in coordination of care (as documented) at patient's floor/unit and/or counseling patient:
[2019-12-06] MEDS: LOSARTAN POTASSIUM 25 MG TAB PO SCH (07:38)
[2019-12-06] MEDS: ESCITALOPRAM OXALATE 10 MG TAB PO SCH (07:38)
[2019-12-06] MEDS: CALCITONIN SALMON NA 200 IU/AC 3.7 ML BTL SCH (07:38)
[2019-12-06 07:45] LABS: Basophils # (auto) 0.01 K/uL (0-0.2); Basophils % (auto) 0.1 %; Eosinophils # (auto) 0.07 K/uL (0-0.5); Eosinophils % (auto) 0.6 %; Hematocrit (blood only) 35.1 % (37-47); Immature Granulocytes # (auto) 0.03 K/uL (0.00-0.02); Immature Granulocytes % (auto) 0.3 %; Lymphocytes # (auto) 1.14 K/uL (1.2-3.4); Lymphocytes % (auto) 10.4 %; Mean Corpuscular Hemoglobin 31.3 pg (25-34); Mean Corpuscular Hgb Conc 34.2 g/dL (32-36); Mean Corpuscular Volume 91.6 fL (80-100); Mean Platelet Volume 10.2 fL (7.4-10.4); Monocytes # (auto) 1.19 K/uL (0.11-0.59); Monocytes % (auto) 10.9 %; Neutrophils % (auto) 77.7 %; Platelet Count 134 K/uL (130-400); RDW Coefficient of Variation 13.2 % (11.5-14.5); RDW Standard Deviation 44.2 fL (36.4-46.3); Red Blood Count 3.83 M/uL (4.2-5.4); White Blood Count 10.94 K/uL (4.8-10.8)
[2019-12-06 08:11] LABS: Estimated Average Glucose 148 mg/dl; Hemoglobin A1C 6.8 % (4.5-5.6)
[2019-12-06 08:26] LABS: BUN Creatinine Ratio 23.3 (10-20); Calcium 8.3 mg/dl (8.5-10.1); Creatinine Clr Calc Pharmacy 37.6 ml/min; Est GFR (African American) 65.7; Est GFR (Non-African American) 56.7; Potassium 3.6 mmol/L (3.5-5.1)
[2019-12-06 08:33] LABS: Albumin Globulin Ratio 1.1 (0.9-2); Bilirubin,Total 1.1 mg/dl (0.2-1); Globulin 2.8 gm/dl (2.5-4.0); Total Protein 5.8 gm/dl (6.4-8.2)
[2019-12-06] MEDS: INSULIN ASPART 100 UNITS/ML 3 ML PEN SC SCH ×4 (08:46→21:18)
--- NOTE | 2019-12-06 10:07 | Consultation ---
Date of Consultation This is a very pleasant, demented 89-year-old female that we are asked to see in consultation regarding closed cervical fractures. Patient is unable to recall any event or falls. Per prior H&P's this fall happened yesterday. She was found by her son lying at the bottom of the steps. Patient denies losing consciousness but again cannot recall any of the events. Dr. Alonso is treating her for b/l distal radius fractures. She denies any significant neck pain. Denies any radicular arm pain or paresthesia. December 06, 2019 Assessment & Plan (1) Closed fracture of spinous process of cervical vertebra: Patient has multiple spinous process fractures of the cervical spine status post fall. Treatment is conservative. I have ordered a [place] J collar to be worn at all times with exception of eating and bathing. We will follow her up as an outpatient in the office in roughly 2 weeks. [phone]. Ambulate ad kim. In regards to her cervical fractures and upper extremity fractures, she would be a strong candidate for rehab stay. Supervising Physician Co-Signing Physician Notes Dr. Ritchie Foss History of Present Illness Attending Physician: Lester Macias MD Allergies Allergy/AdvReac Type Severity Reaction Status Date / Time No Known Allergies Allergy Unverified 12/05/19 13:50 Home Medications Home Medications Medication Instructions Recorded Confirmed Type escitalopram oxalate 10 mg PO DAILY 12/05/19 12/05/19 History levothyroxine 125 mcg PO DAILY 12/05/19 12/05/19 History losartan 25 mg PO DAILY 12/05/19 12/05/19 History metformin 500 mg PO PM 12/05/19 12/05/19 History simvastatin 20 mg PO HS 12/05/19 12/05/19 History Patient History Medical History Dementia Diabetes mellitus type 2, diet-controlled (Chronic) Surgical History H/O: hysterectomy (Resolved) Social History Preferred Language: Cambodian Communication Ability: Effective Supply Requirements Officer Required: No Beliefs That Will Affect Care: None Current Living Situation: Alone Other Information That Helps Us Care for You: No Feels Safe at Home: Yes Safety Concerns: Feels Safe At This Time Smoking Status: Never smoker Hx Alcohol Use: No Hx Substance Use: No Review of Systems Review of Systems: All systems reviewed & are unremarkable except as noted in HPI & below Physical Exam Physical Exam: Patient is alert but disoriented. No obvious distress. Splints of bilateral arms are clean dry and intact. She is modestly tender to palpation to the midline lower cervical region. No facial ecchymosis. No lacerations noted. 5/5 bilateral biceps, triceps, deltoid. Constitutional: WD/WN, vitals as above Eyes: normal visual [place]rose by confrontation ENMT: external ear and nose normal, oropharynx normal Neck: normal visual inspection Respiratory: normal respiratory effort Cardiovascular: Extremities: normal capillary refill Gastrointestinal (Abdomen): Inspection/Auscultation: abdomen normal to inspection Musculoskeletal: Extremities: strength 5/5 throughout Skin: no rashes, warm and dry Neurologic: moves all extremities Psychiatric: Orientation: alert Speech: normal rate/rhythm/volume of speech Results & Data Vital Signs (Past 12 Hours) Vital Signs Temp Pulse Pulse Resp BP BP Pulse Ox 12/06/19 08:51 182/76 H 12/06/19 07:58 37.2 C 66 18 193/77 H 95 12/06/19 03:20 37.1 C 71 18 175/72 H 98 12/06/19 00:01 94 12/05/19 23:54 37.5 C 76 17 183/87 H 89 L 12/05/19 22:20 74 Diagnostic Findings [place], [place] [phone] CT Scan Report Patient: SANTINO SHEEHANAdmit Date: 12/05/19 MR#: [id number]: [address] Acct ID:[id number]: [facility] Zip: [place] [address] Age: 89Location: ED Sex: F Room/Bed: Att Phy:Diagnosis: FALL Sherice Phy: Mahendra Jasso M.D.Service Date: 12/05/19 Fam Phy:Interpreting Phy: Jay Mattson MD Admit Phy: Ordering Phy: Pedro Luis Garcia M.D. cc: ~ CT cervical spine wo con CT DOSE: 924.94 mGy.cm HISTORY: Trauma. Pain. s/p fall, likely down stairs TECHNIQUE: Multiaxial CT images of the cervical spine were performed and reformatted in the sagittal and coronal plane without the use of contrast. A dose lowering technique was utilized adhering to the principles of ALARA. COMPARISON: None. FINDINGS: Vertebral body stature is unremarkable. No evidence for vertebral body compression deformity. There are fractures of the spinous processes of C5-C6 and C7. The posterior and lateral elements are intact throughout. Lumbar apices show minimal apical fibrotic change. IMPRESSION: 1. Fractures of the spinous processes of C5, C6, and C7.. 2. No additional acute bony abnormality. 3. No evidence for compression deformity. ACT 112: Negative or not required by law. The above report was generated using voice recognition software. It may contain grammatical, syntax or spelling errors. Electronically signed by: Jay Mattson M.D. 12/05/2019 3:24 PM Dictated: 12/05/19 1521 Transcribed: 12/05/19 1521 (1) Closed fracture of spinous process of cervical vertebra Encounter type: initial encounter Qualified Code(s): S12.9XXA - Fracture of neck, unspecified, initial encounter
--- NOTE | 2019-12-06 12:25 | Pharmacy Report ---
Glycemic Control Consultation - Date of Service December 06, 2019 - Scope Scope: Glycemic Pharmacist consulted by Dr [] on [date] for glycemic control and to write orders per [facility] inpatient glycemic control protocol - Objective Weight: 55.6 kg Accuchecks BSG (last 24hrs): 12/05/19 12/05/19 12/06/19 13:58 21:57 03:59 Glucose 184 H POC Glucose 159 H 158 H 12/06/19 12/06/19 12/06/19 07:12 07:20 11:11 Glucose 147 H POC Glucose 149 H 196 H Laboratory Data (last 24hrs): 12/05/19 12/06/19 13:58 07:20 Potassium 3.8 3.6 Carbon Dioxide 28 26 Anion Gap 8.0 7.0 Creatinine 0.99 0.91 Est Cr Clr Drug Dosing 34.6 37.6 HbA1c: Hemoglobin A1c 6.8 % (4.5-5.6) H 12/06/19 07:20 - Recent Pertinent Medications Outpatient Anti-diabetic Regimen: * METFORMIN 500 MG QPM * A1c = 6.4 % 10/17/19 Risk Factors for Insulin Resistance: * Diet: T2DM - Assessment & Plan Assessment & Plan: ASSESSMENT: * Ms Boswell is an 89 y/o F with a PMH of well controlled T2DM who presents with bilateral wrist fractures. Patient will be managed medically. * Started on weight-based stress of 2-3 Novolog. Blood sugar this morning 149 mg/dL and lunch 196 mg/dL. Tightened Novolog slightly. * Due to blood sugar over 180 mg/dL, ordered Lantus 10 units daily. * Pt is maintained on oral antidiabetic agents as an outpatient * Oral agents are not recommended for inpatient use d/t drug interactions, changing PO intake, and difficulty titrating for acute hyper/hypoglycemia. ADA recommends re-initiating outpatient oral agents 1-2 days prior to discharge if/when appropriate if they were held on admission. * Will hold oral agents for admission and utilize SQ basal bolus insulin regimen which is the recommended regimen for inpatient glycemic control. * Will initiate weight based insulin dosing for insulin terri patient and titrate based on BSG trends. PLAN FOR INPATIENT GLYCEMIC CONTROL: * Holding outpatient oral diabetes medications * Basal insulin * Lantus 10 units SQ daily * Bolus insulin * NovoLog per scale ACHS or Q6hrs while NPO * Goal Range: Low 120 mg/dL - High 150 mg/dL * Correction Factor: 30 mg/dL/unit * Nutritional / Prandial insulin per carb ratio of 1 unit per 10 grams CHO consumed OUTPATIENT RECOMMENDATIONS * Patient's eGFR is still within range to utilize metformin --- however concern for utilizing in the elderly with h/o falls. * HbA1C is well controlled - she may benefit from a GLP-1 agonist such as Ozempic, Victoza, or Trulicity instead of metformin. Recommend close follow- up. Thank you.
[2019-12-06] MEDS: INSULIN GLARGINE SOLOSTAR 100 UNITS/ML 3 ML PEN SC SCH (13:42)
--- NOTE | 2019-12-06 14:40 | Hospitalist Progress Note ---
Date of Service December 06, 2019 Assessment & Plan (1) Fall: Unclear reason, likely mechanical - patient was found by her son at the bottom of her staircase and she does not remember why she fell No events on tele monitor over the last [address] without acute change Check orthostatics (2) Nondisplaced fracture of distal end of right radius: Consulted ortho - Nonoperative - She can stay in her current volar splint for now and may be switched to cock-up wrist splint at follow up with ortho next week (3) Displaced fracture of distal end of left radius: Consulted orth - Nonoperative. Coaptation splint for now, follow up ortho 1 week, they will get repeat x-rays at that time. (4) Multiple rib fractures: Pain control IS (5) Closed fracture of spinous process of cervical vertebra: Per ortho consult - [place] J collar to be worn at all times with exception of eating and bathing. Follow up with ortho in 2 weeks. [phone]. Ambulate ad kim. Calcitonin nasal spray (6) Hypertension: Continue losartan Prn hydralazine (7) Diabetes mellitus type II, controlled: A1c 6.8% BSGs ac & hs, ss, hold home metformin for now (8) Elevated bilirubin: 1.4 on admission, now 1.1 No abdominal complaints, nausea or vomiting (9) Dementia: (10) Hypothyroid: Continue levothyroxine (11) Hyperlipidemia: Continue statin (12) DVT prophylaxis: SCDs PT/OT - will likely require rehab stay. Per CM, referral sent to [place]. Transfer to med/surg Subjective Ms. Boswell is accompanied by her son and daughter in law. She reports her pain level is tolerable. She is somewhat disoriented but pleasant. She reports that it is 2013. Her son states she is about at her baseline mentally and that she has baseline dementia. ROS Constitutional: no chills, aches, sweats or fever Respiratory: no sob,cough, sputum, or wheezing Cardiac: no chest pain, palpitations, edema, orthopnea or lightheadedness GI: no abdominal pain, nausea, vomiting, diarrhea or constipation : no dysuria or hesitancy Extremities: see HPI Skin: no rash All other systems reviewed and negative Physical Exam Physical Exam: General: no distress Eyes: normal inspection, PERLL Respiratory: chest non tender, clear to auscultation, normal breath sounds, no respiratory distress, no accessory muscle use Cardiac: regular rate and rhythm, no rub or gallop, no murmur, no edema, no jvd GI/: active bowel sounds, no abd pain or tenderness, soft, non distended Extremities: normal range of motion, normal strength, non tender Neuro/Psych: alert and oriented to person and place, normal mood and affect Skin: normal color, dry Results & Data Vital Signs (Past 12 Hours) Vital Signs Temp Pulse Resp BP BP Pulse Ox 12/06/19 11:46 37.3 C 70 20 159/77 H 92 12/06/19 10:59 92 12/06/19 08:51 182/76 H 12/06/19 07:58 37.2 C 66 18 193/77 H 95 12/06/19 03:20 37.1 C 71 18 175/72 H 98 PG Care Time/CCT Total # of Minutes Spent Total Time Spent with Patient: Total time spent is greater than 50% in coordination of care (as documented) at patient's floor/unit and/or counseling patient: (1) Multiple rib fractures Encounter type: initial encounter Fracture type: closed Laterality: left Qualified Code(s): S22.42XA - Multiple fractures of ribs, left side, initial encounter for closed fracture (2) Closed fracture of spinous process of cervical vertebra Encounter type: initial encounter Qualified Code(s): S12.9XXA - Fracture of neck, unspecified, initial encounter (3) Fall Encounter type: initial encounter Qualified Code(s): W19.XXXA - Unspecified fall, initial encounter
[2019-12-06] MEDS: SIMVASTATIN 20 MG TAB PO SCH (20:58)
[2019-12-07] MEDS: HydrALAZINE HCL 20 MG/ML VIAL IV PRN ×2 (01:35→07:49)
[2019-12-07] MEDS: LEVOTHYROXINE SODIUM 125 MCG TABLET PO SCH (05:42)
--- NOTE | 2019-12-07 07:11 | Orthopedic Progress Note ---
Date of Service December 07, 2019 Assessment & Plan (1) Nondisplaced fracture of distal end of right radius: With regards to her right wrist, it is nondisplaced. She will likely be treated in a removable cock-up wrist splint when I see her in the office in a week. I wanted to leave the volar splint on for now. She can use her fingers but no gripping or lifting. Present on Admission?: Yes (2) Displaced fracture of distal end of left radius: With regards to her left wrist, it is slightly more displaced. She may require cast treatment. It will be treated nonsurgically. She can use her fingers but no gripping or lifting with the left wrist. I will see her in the office in 1 week. Present on Admission?: Yes (3) Closed fracture of spinous process of cervical vertebra: With regards to her spinous process fractures, the fractures do not involve the posterior lateral elements of the vertebral bodies. The fractures do look a they may be old on CT scan. She is really not having much pain. She does not have any midline pain in the area of the fractures and she has full range of motion of her cervical spine without pain. Because of this, I do not feel it is necessary to wear the [place] J collar. Please follow-up with Dr. Foss's PA to concur with this recommendation. Present on Admission?: Yes (4) Multiple rib fractures: Regards to the ribs, they will heal with time. Unfortunately they can be sore for 6 to 8 weeks until they are fully healed. These fractures will be treated conservatively. Present on Admission?: Yes Sonja Chavez was seen and examined at bedside this morning. Overall she is doing fairly well. She is not having much pain in her wrist. She is not having any pain in her neck. She is complaining that the [place] J collar is very uncomfortable. She has no other complaints. Physical Exam Musculoskeletal: On physical examination of the left wrist, the coaptation splint is intact. She has motion of all of her fingers. She has a little bit of swelling. She does not have much pain. On physical examination of the right wrist she has a volar splint in place. She is active motion of all of her fingers. She does not have much pain. On examination of her cervical spine, she has very minimal midline tenderness the only place where she does have pain is in the C7-T1 regions. She has full flexion extension rotation of her neck without any pain. Results & Data Vital Signs (Past 12 Hours) Vital Signs Temp Pulse Resp BP Pulse Ox 12/07/19 01:27 202/81 H 12/06/19 23:33 37.1 C 78 16 201/80 H 91 PG Care Time/CCT Total # of Minutes Spent Total Time Spent with Patient: Total time spent is greater than 50% in food cooking machine operator rdination of care (as documented) at patient's floor/unit and/or counseling patient: (1) Closed fracture of spinous process of cervical vertebra Encounter type: initial encounter Qualified Code(s): S12.9XXA - Fracture of neck, unspecified, initial encounter (2) Multiple rib fractures Encounter type: initial encounter Fracture type: closed Laterality: left Qualified Code(s): S22.42XA - Multiple fractures of ribs, left side, initial encounter for closed fracture
[2019-12-07] MEDS: LOSARTAN POTASSIUM 25 MG TAB PO SCH (07:49)
[2019-12-07] MEDS: ESCITALOPRAM OXALATE 10 MG TAB PO SCH (07:49)
[2019-12-07] MEDS: CALCITONIN SALMON NA 200 IU/AC 3.7 ML BTL SCH (07:50)
[2019-12-07 09:14] LABS: Hematocrit (blood only) 36.6 % (37-47); Hemoglobin 12.2 g/dL (12.0-16.0); Mean Corpuscular Hemoglobin 30.6 pg (25-34); Mean Corpuscular Hgb Conc 33.3 g/dL (32-36); Mean Corpuscular Volume 91.7 fL (80-100); Mean Platelet Volume 10.6 fL (7.4-10.4); Platelet Count 133 K/uL (130-400); RDW Coefficient of Variation 13.2 % (11.5-14.5); RDW Standard Deviation 44.3 fL (36.4-46.3); Red Blood Count 3.99 M/uL (4.2-5.4); White Blood Count 12.47 K/uL (4.8-10.8)
[2019-12-07 09:33] LABS: Albumin Level 3.2 gm/dl (3.4-5.0); BUN Creatinine Ratio 21.4 (10-20); Calcium 8.4 mg/dl (8.5-10.1); Creatinine Clr Calc Pharmacy 45.6 ml/min; Est GFR (African American) 83.1; Est GFR (Non-African American) 71.7; Potassium 3.3 mmol/L (3.5-5.1)
[2019-12-07 09:36] LABS: Bilirubin,Total 1.3 mg/dl (0.2-1); Globulin 3.1 gm/dl (2.5-4.0); Total Protein 6.3 gm/dl (6.4-8.2)
[2019-12-07] MEDS: INSULIN GLARGINE SOLOSTAR 100 UNITS/ML 3 ML PEN SC SCH (09:42)
[2019-12-07] MEDS: INSULIN ASPART 100 UNITS/ML 3 ML PEN SC SCH ×4 (09:43→20:55)
--- NOTE | 2019-12-07 17:27 | Hospitalist Progress Note ---
Date of Service December 07, 2019 Assessment & Plan (1) Fall: Unclear reason, likely mechanical - patient was found by her son at the bottom of her staircase and she does not remember why she fell No events on tele monitor Head CT without acute change Check orthostatics (2) Nondisplaced fracture of distal end of right radius: Consulted ortho - Nonoperative - She can stay in her current volar splint for now and may be switched to cock-up wrist splint at follow up with ortho next week (3) Displaced fracture of distal end of left radius: Consulted orth - Nonoperative. Coaptation splint for now, follow up ortho 1 week, they will get repeat x-rays at that time. (4) Multiple rib fractures: Pain control IS (5) Closed fracture of spinous process of cervical vertebra: Per ortho consult - [place] J collar to be worn at all times with exception of eating and bathing. Ms. Fuller is having some difficulty tolerating the collar. Discussed with Lissa Stone from ortho Spine - recommends soft collar if [place] J is intolerable Follow up with ortho spine in 2 weeks. [phone]. Ambulate ad kim. Calcitonin nasal spray (6) Hypertension: Continue losartan Prn hydralazine Pressures have been improving throughout the day (7) Diabetes mellitus type II, controlled: A1c 6.8% BSGs ac & hs, ss, hold home metformin for now (8) Elevated bilirubin: 1.4 on admission, now 1.1 No abdominal complaints, nausea or vomiting (9) Dementia: PT/OT - will likely require rehab stay. Per CM, referral sent to [place] (10) Hypothyroid: Continue levothyroxine (11) Hyperlipidemia: Continue statin (12) DVT prophylaxis: SCDs PT/OT - will likely require rehab stay. Per CM, referral sent to [place]. Transfer to med/surg Subjective Ms. Boswell is having some pain but reports that it is tolerable. She is apparently not tolerating the [place] J collar very well. She has no other complaints ROS Constitutional: no chills, aches, sweats or fever Respiratory: no sob,cough, sputum, or wheezing Cardiac: no chest pain, palpitations, edema, orthopnea or lightheadedness GI: no abdominal pain, nausea, vomiting, diarrhea or constipation : no dysuria or hesitancy Extremities: no joint pain or weakness Skin: no rash All other systems reviewed and negative Physical Exam Physical Exam: General: no distress Eyes: normal inspection, PERLL Respiratory: chest non tender, clear to auscultation, normal breath sounds, no respiratory distress, no accessory muscle use Cardiac: regular rate and rhythm, no rub or gallop, no murmur, no edema, no jvd GI/: active bowel sounds, no abd pain or tenderness, soft, non distended Extremities: normal range of motion, normal strength, non tender, fingers warm and able to go through range of motion Neuro/Psych: alert and oriented x 3, normal mood and affect Skin: normal color, dry Results & Data Vital Signs (Past 12 Hours) Vital Signs Temp Pulse Pulse Resp BP Pulse Ox 12/07/19 15:33 37.8 C H 74 18 157/62 H 91 12/07/19 09:53 69 173/71 H 12/07/19 07:41 36.9 C 76 22 210/97 H 92 PG Care Time/CCT Total # of Minutes Spent Total Time Spent with Patient: Total time spent is greater than 50% in coordination of care (as documented) at patient's floor/unit and/or counseling patient: (1) Fall Encounter type: initial encounter Qualified Code(s): W19.XXXA - Unspecified fall, initial encounter (2) Multiple rib fractures Encounter type: initial encounter Fracture type: closed Laterality: left Qualified Code(s): S22.42XA - Multiple fractures of ribs, left side, initial encounter for closed fracture (3) Closed fracture of spinous process of cervical vertebra Encounter type: initial encounter Qualified Code(s): S12.9XXA - Fracture of neck, unspecified, initial encounter
--- NOTE | 2019-12-07 19:05 | History & Physical Report ---
Date of Service December 05, 2019 Assessment & Plan (1) Fall: Unclear reason, likely mechanical - patient was found by her son at the bottom of her staircase and she does not remember why she fell No events on tele monitor Head CT without acute change Check orthostatics (2) Nondisplaced fracture of distal end of right radius: Consult ortho (3) Displaced fracture of distal end of left radius: Consult orth - splint placed in the ER (4) Multiple rib fractures: Pain control IS (5) Closed fracture of spinous process of cervical vertebra: consult ortho Ambulate ad kim. Calcitonin nasal spray (6) Hypertension: Continue losartan Prn hydralazine (7) Diabetes mellitus type II, controlled: A1c 6.8% BSGs ac & hs, ss, hold home metformin for now (8) Elevated bilirubin: 1.4 on admission, now 1.1 No abdominal complaints, nausea or vomiting (9) Dementia: PT/OT , will benefit from SNF (10) Hypothyroid: Continue levothyroxine (11) Hyperlipidemia: Continue statin (12) DVT prophylaxis: SCDs PT/OT dispo -most likely SNF upon discharge History of Present Illness Chief Complaint: mechanical fall Primary Care Provider: Mahendra Johns MD The patient is an 89 year old white female w/ PMHx of dementia and type 2 diabetes who presents to the ED after mechanical fall around 11:15 am. Per son, when he checked on the patient at 11:30, he found her laying at the bottom of the staircase saturated in urine. The patient states that she does not remember falling or hitting her head. The patients son states that he believes the patient fell down approximately 5-6 steps. The patient states that she has some left wrist and left rib pain. The patient denies abdominal pain, chest pain, head pain and shortness of breath. The patient states that she has not yet eaten anything today. The patient denies receiving any treatments prior to arrival. Cervical spine XR:. Fractures of the spinous processes of C5, C6, and C7. 1.Nondisplaced acute fractures left sixth seventh and eighth ribs. 2. No evidence of pneumothorax. 3. Multiple additional old healed left rib fractures. 4.Comminuted fracture distal radius extending to the articular surface. Mild dorsal angulation. Soft tissue edema. 5.Nondisplaced comminuted fracture distal radius. Soft tissue edema. Admit to PCU on tele Allergies Allergy/AdvReac Type Severity Reaction Status Date / Time No Known Allergies Allergy Unverified 12/05/19 13:50 Home Medications Home Medications Medication Instructions Recorded Confirmed Type escitalopram oxalate 10 mg PO DAILY 12/05/19 12/05/19 History levothyroxine 125 mcg PO DAILY 12/05/19 12/05/19 History losartan 25 mg PO DAILY 12/05/19 12/05/19 History metformin 500 mg PO PM 12/05/19 12/05/19 History simvastatin 20 mg PO HS 12/05/19 12/05/19 History Past Med/Surg History Medical History Dementia Surgical History H/O: hysterectomy (Resolved) Social History Preferred Language: Japanese Communication Ability: Effective Applications Developer Required: No Beliefs That Will Affect Care: None Current Living Situation: Alone Other Information That Helps Us Care for You: No Feels Safe at Home: Yes Safety Concerns: Feels Safe At This Time Smoking Status: Never smoker Hx Alcohol Use: No Hx Substance Use: No Review of Systems Review of Systems: All systems reviewed & are unremarkable except as noted in HPI & below Physical Exam Constitutional: WD/WN, vitals as above Eyes: PERRL, conjunctivae normal, anicteric sclerae normal visual ambrose by confrontation ENMT: external ear and nose normal, oropharynx normal Neck: trachea midline, no thyromegaly normal visual inspection Respiratory: normal respiratory effort Cardiovascular: RRR, no murmur, no edema Extremities: normal capillary refill Gastrointestinal (Abdomen): normal bowel sounds, soft, nontender, no hepatosplenomegaly Inspection/Auscultation: abdomen normal to inspection Musculoskeletal: Extremities: strength 5/5 throughout Skin: no rashes, warm and dry Neurologic: moves all extremities Psychiatric: A+Ox3, euthymic affect Orientation: alert Speech: normal rate/rhythm/volume of speech Results & Data Vital Signs (Past 12 Hours) Vital Signs Temp Pulse Pulse Resp BP Pulse Ox 12/07/19 15:33 37.8 C H 74 18 157/62 H 91 12/07/19 09:53 69 173/71 H 12/07/19 07:41 36.9 C 76 22 210/97 H 92 Code Status & VTE Plan Code Status Full code VTE Prophylaxis Plan VTE Prophylaxis will be ordered: Yes PG Care Time/CCT Total # of Minutes Spent Total Time Spent with Patient: Total time spent is greater than 50% in coordination of care (as documented) at patient's floor/unit and/or counseling patient: (1) Multiple rib fractures Encounter type: initial encounter Fracture type: closed Laterality: left Qualified Code(s): S22.42XA - Multiple fractures of ribs, left side, initial encounter for closed fracture (2) Closed fracture of spinous process of cervical vertebra Encounter type: initial encounter Qualified Code(s): S12.9XXA - Fracture of neck, unspecified, initial encounter (3) Fall Encounter type: initial encounter Qualified Code(s): W19.XXXA - Unspecified fall, initial encounter
[2019-12-07] MEDS: SIMVASTATIN 20 MG TAB PO SCH (20:18)
[2019-12-07] MEDS: HEPARIN SOD 5,000 UNIT/0.5 ML VIAL SQ SCH (20:21)
[2019-12-08] MEDS: LEVOTHYROXINE SODIUM 125 MCG TABLET PO SCH (05:47)
[2019-12-08 06:21] LABS: Mean Corpuscular Hgb Conc 34.4 g/dL (32-36); Mean Platelet Volume 10.7 fL (7.4-10.4); Platelet Count 153 K/uL (130-400)
[2019-12-08 06:39] LABS: Hematocrit (blood only) 34.6 % (37-47); Hemoglobin 11.9 g/dL (12.0-16.0); Mean Corpuscular Hemoglobin 31.1 pg (25-34); Mean Corpuscular Volume 90.3 fL (80-100); RDW Coefficient of Variation 13.3 % (11.5-14.5); RDW Standard Deviation 43.7 fL (36.4-46.3); Red Blood Count 3.83 M/uL (4.2-5.4); White Blood Count 10.53 K/uL (4.8-10.8)
[2019-12-08 06:41] LABS: Basophils # (auto) 0.02 K/uL (0-0.2); Basophils % (auto) 0.2 %; Eosinophils # (auto) 0.09 K/uL (0-0.5); Eosinophils % (auto) 0.9 %; Immature Granulocytes # (auto) 0.06 K/uL (0.00-0.02); Immature Granulocytes % (auto) 0.6 %; Lymphocytes # (auto) 1.36 K/uL (1.2-3.4); Lymphocytes % (auto) 12.9 %; Monocytes # (auto) 1.11 K/uL (0.11-0.59); Monocytes % (auto) 10.5 %; Neutrophils # (auto) 7.89 K/uL (1.4-6.5); Neutrophils % (auto) 74.9 %
[2019-12-08 07:09] LABS: Albumin Globulin Ratio 0.8 (0.9-2); Albumin Level 2.8 gm/dl (3.4-5.0); BUN Creatinine Ratio 28.7 (10-20); Bilirubin,Total 1.2 mg/dl (0.2-1); Calcium 8.2 mg/dl (8.5-10.1); Creatinine Clr Calc Pharmacy 42.8 ml/min; Est GFR (African American) 76.8; Est GFR (Non-African American) 66.3; Globulin 3.3 gm/dl (2.5-4.0); Total Protein 6.1 gm/dl (6.4-8.2)
[2019-12-08] MEDS: HydrALAZINE HCL 20 MG/ML VIAL IV PRN (07:36)
[2019-12-08] MEDS: ESCITALOPRAM OXALATE 10 MG TAB PO SCH (07:36)
[2019-12-08] MEDS: CALCITONIN SALMON NA 200 IU/AC 3.7 ML BTL SCH (07:36)
[2019-12-08] MEDS: LOSARTAN POTASSIUM 25 MG TAB PO SCH (07:36)
[2019-12-08] MEDS ORDERED: NURSING DECISION MEDICATION ONE (08:07)
[2019-12-08] MEDS ORDERED: SODIUM CHLORIDE 0.65% NA SOLN 45 ML (OCEAN) PRN (08:14)
[2019-12-08] MEDS ORDERED: LOSARTAN POTASSIUM 25 MG TAB PO ONE (09:00)
[2019-12-08] MEDS: HEPARIN SOD 5,000 UNIT/0.5 ML VIAL SQ SCH ×2 (09:43→21:12)
[2019-12-08] MEDS: INSULIN ASPART 100 UNITS/ML 3 ML PEN SC SCH ×4 (09:45→21:11)
[2019-12-08] MEDS: INSULIN GLARGINE SOLOSTAR 100 UNITS/ML 3 ML PEN SC SCH (09:46)
[2019-12-08] MEDS: ACETAMINOPHEN 325 MG TAB PO PRN (13:25)
--- NOTE | 2019-12-08 13:41 | Orthopedic Progress Note ---
Date of Service December 08, 2019 Assessment & Plan (1) Nondisplaced fracture of distal end of right radius: We will treat her wrist conservatively. I want to see her in the office next week to remove the splints and place her in either removable splint or cast. We will get x-rays at my office and decide her best course of treatment. She is still not having any cervical pain. She has been switched from a hard collar to a soft collar but the soft collar is very uncomfortable and debilit ating. If it is necessary then it is reasonable however, she is not having any cervical pain and she is had full range of motion of her cervical spine. The family is wondering if the soft collar can be discontinued. I will asked the nursing staff to get a hold of the spine service was consulted on the cervical spinous fracture to see if the collar can be removed. Present on Admission?: Yes (2) Displaced fracture of distal end of left radius: Present on Admission?: Yes Sonja Chavez was seen and examined at bedside. Overall she is doing fairly well. She is having some soreness in her wrists and her ribs. She is not having any neck pain. Her family is with her at bedside. Physical Exam Musculoskeletal: Physical examination of her wrist, the splints are intact. She is active motion of her fingers. She does have some swelling. She is currently in a soft cervical collar. Results & Data Vital Signs (Past 12 Hours) Vital Signs Temp Pulse Resp BP Pulse Ox 12/08/19 12:42 68 177/70 H 12/08/19 09:51 181/74 H 12/08/19 07:33 36.8 C 69 20 211/81 H 92 PG Care Time/CCT Total # of Minutes Spent Total Time Spent with Patient: Total time spent is greater than 50% in coordination of care (as documented) at patient's floor/unit and/or counseling patient: Coding Level of Care Code 84871 Subseq Hosp Care Lvl 3 Diagnoses Nondisplaced fracture of distal end of right radius S52.501A Displaced fracture of distal end of left radius S52.502A
--- NOTE | 2019-12-08 15:29 | Pharmacy Report ---
Pharmacy Glycemic Short Note 2 - Date of Service December 08, 2019 - Glycemic Short BSG Results (Last 24 hours): 12/07/19 12/07/19 12/08/19 17:05 20:44 05:47 Glucose 139 H POC Glucose 135 H 187 H 12/08/19 12/08/19 08:15 12:21 Glucose POC Glucose 157 H 154 H OUTPATIENT ANTIDIABETIC REGIMEN: * Metformin ER 500 mg PO QAM ASSESSMENT: * Patient received total 20 units of insulin yesterday: 10 unit of basal and 10 units of bolus. * Fasting BSG today was at goal. Continued basal Lantus 10 units in the AM. * Post prandial BSGs were reasonable yesterday and today. Therefore, Novolog parameters were also continued. PLAN FOR INPATIENT GLYCEMIC CONTROL: * Hold outpatient oral diabetes medications * Basal insulin: continue * Lantus 10 units SQ QAM * Bolus insulin: continue * NovoLog per scale ACHS or Q6hrs while NPO * Goal Range: Low 120 mg/dL - High 150 mg/dL * Correction Factor: 30 mg/dL/unit * Nutritional / Prandial insulin per carb ratio of 1 unit per 10 grams CHO consumed PLAN FOR DISCHARGE: * Patient's eGFR is still within range to utilize metformin --- however concern for utilizing in the elderly with h/o falls. * HbA1C is well controlled - she may benefit from a GLP-1 agonist such as Ozempic, Victoza, or Trulicity instead of metformin. Recommend close follow- up.
--- NOTE | 2019-12-08 15:59 | Hospitalist Progress Note ---
Date of Service December 08, 2019 Assessment & Plan (1) Fall: Unclear reason, likely mechanical - patient was found by her son at the bottom of her staircase and she does not remember why she fell No events on tele monitor over 24 hours while monitored Head CT without acute change Check orthostatics (2) Nondisplaced fracture of distal end of right radius: onsulted ortho - Nonoperative - She can stay in her current volar splint for now and may be switched to cock-up wrist splint at follow up with ortho next week (3) Displaced fracture of distal end of left radius: Consulted orth - Nonoperative. Coaptation splint for now, follow up ortho 1 week, they will get repeat x-rays at that time. (4) Multiple rib fractures: Pain control IS (5) Closed fracture of spinous process of cervical vertebra: Per ortho consult - [place] J collar to be worn at all times with exception of eating and bathing. Ms. Fuller is having some difficulty tolerating the collar. Discussed with Lissa Stone from ortho Spine - recommends soft collar if [place] J is intolerable Follow up with ortho spine in 2 weeks. [phone]. Ambulate ad kim. Calcitonin nasal spray (6) Hypertension: Continue losartan - will increase to 50 mg due to persistent hypertension 200s systolically at times Prn hydralazine (7) Diabetes mellitus type II, controlled: A1c 6.8% BSGs ac & hs, ss, hold home metformin for now (8) Elevated bilirubin: 1.4 on admission, now 1.1 No abdominal complaints, nausea or vomiting (9) Dementia: PT/OT - will likely require rehab stay. Per CM, referral sent to [facility] (10) Hypothyroid: Continue levothyroxine (11) Hyperlipidemia: Continue statin (12) DVT prophylaxis: SCDs PT/OT dispo - referral to [facility] Subjective Ms. Boswell denies pain. She is feeling well. Pleasant but disoriented ROS Constitutional: no chills, aches, sweats or fever Respiratory: no sob,cough, sputum, or wheezing Cardiac: no chest pain, palpitations, edema, orthopnea or lightheadedness GI: no abdominal pain, nausea, vomiting, diarrhea or constipation : no dysuria or hesitancy Extremities: no joint pain or weakness Skin: no rash All other systems reviewed and negative Physical Exam Physical Exam: General: no distress Eyes: normal inspection, PERLL Respiratory: chest non tender, clear to auscultation, normal breath sounds, no respiratory distress, no accessory muscle use Cardiac: regular rate and rhythm, no rub or gallop, no murmur, no edema, no jvd GI/: active bowel sounds, no abd pain or tenderness, soft, non distended Extremities: normal range of motion, normal strength, non tender Neuro/Psych: alert and oriented to self, normal mood and affect Skin: normal color, dry Results & Data Vital Signs (Past 12 Hours) Vital Signs Temp Pulse Resp BP Pulse Ox 12/08/19 15:15 36.8 C 66 16 123/65 93 12/08/19 12:42 68 177/70 H 12/08/19 09:51 181/74 H 12/08/19 07:33 36.8 C 69 20 211/81 H 92 PG Care Time/CCT Total # of Minutes Spent Total Time Spent with Patient: Total time spent is greater than 50% in coordination of care (as documented) at patient's floor/unit and/or counseling patient: (1) Fall Encounter type: initial encounter Qualified Code(s): W19.XXXA - Unspecified fall, initial encounter (2) Multiple rib fractures Encounter type: initial encounter Fracture type: closed Laterality: left Qualified Code(s): S22.42XA - Multiple fractures of ribs, left side, initial encounter for closed fracture (3) Closed fracture of spinous process of cervical vertebra Encounter type: initial encounter Qualified Code(s): S12.9XXA - Fracture of neck, unspecified, initial encounter
[2019-12-08] MEDS: SIMVASTATIN 20 MG TAB PO SCH (21:04)
[2019-12-09] MEDS: HydrALAZINE HCL 20 MG/ML VIAL IV PRN ×2 (00:24→16:24)
[2019-12-09] MEDS: LEVOTHYROXINE SODIUM 125 MCG TABLET PO SCH (06:02)
[2019-12-09 07:22] LABS: Basophils # (auto) 0.01 K/uL (0-0.2); Basophils % (auto) 0.1 %; Eosinophils # (auto) 0.05 K/uL (0-0.5); Eosinophils % (auto) 0.5 %; Hemoglobin 12.3 g/dL (12.0-16.0); Immature Granulocytes # (auto) 0.04 K/uL (0.00-0.02); Immature Granulocytes % (auto) 0.4 %; Lymphocytes # (auto) 1.28 K/uL (1.2-3.4); Lymphocytes % (auto) 14.1 %; Mean Corpuscular Hgb Conc 34.2 g/dL (32-36); Mean Corpuscular Volume 90.7 fL (80-100); Mean Platelet Volume 10.2 fL (7.4-10.4); Monocytes % (auto) 9.9 %; Neutrophils # (auto) 6.83 K/uL (1.4-6.5); Platelet Count 178 K/uL (130-400); RDW Coefficient of Variation 13.2 % (11.5-14.5); Red Blood Count 3.97 M/uL (4.2-5.4); White Blood Count 9.11 K/uL (4.8-10.8)
[2019-12-09 07:39] LABS: Albumin Level 2.9 gm/dl (3.4-5.0); BUN Creatinine Ratio 27.8 (10-20); Calcium 8.7 mg/dl (8.5-10.1); Creatinine Clr Calc Pharmacy 43.3 ml/min; Est GFR (Non-African American) 67.3
[2019-12-09 07:43] LABS: Albumin Globulin Ratio 0.9 (0.9-2); Bilirubin,Total 1.3 mg/dl (0.2-1); Globulin 3.2 gm/dl (2.5-4.0); Total Protein 6.1 gm/dl (6.4-8.2)
[2019-12-09 08:26] LABS: Potassium 3.8 mmol/L (3.5-5.1)
[2019-12-09] MEDS: INSULIN ASPART 100 UNITS/ML 3 ML PEN SC SCH ×4 (09:24→20:43)
[2019-12-09] MEDS: LOSARTAN POTASSIUM 50 MG TAB PO SCH (09:25)
[2019-12-09] MEDS: ESCITALOPRAM OXALATE 10 MG TAB PO SCH (09:25)
[2019-12-09] MEDS: HEPARIN SOD 5,000 UNIT/0.5 ML VIAL SQ SCH ×2 (09:25→20:43)
[2019-12-09] MEDS: CALCITONIN SALMON NA 200 IU/AC 3.7 ML BTL SCH (09:26)
[2019-12-09] MEDS: INSULIN GLARGINE SOLOSTAR 100 UNITS/ML 3 ML PEN SC SCH (09:26)
[2019-12-09] MEDS: ACETAMINOPHEN 325 MG TAB PO PRN (16:24)
--- NOTE | 2019-12-09 17:36 | Hospitalist Progress Note ---
Date of Service December 09, 2019 Assessment & Plan (1) Fall: Unclear reason, likely mechanical - patient was found by her son at the bottom of her staircase and she does not remember why she fell. - No events on tele monitor over 24 hours while monitored. - Head CT without acute change. - Orthostatics were normal. (2) Nondisplaced fracture of distal end of right radius: Consulted ortho - Nonoperative - She can stay in her current volar splint for now and may be switched to cock-up wrist splint at follow up with ortho next week. (3) Displaced fracture of distal end of left radius: Consulted orth - Nonoperative. Coaptation splint for now, follow up ortho 1 week, they will get repeat x-rays at that time. (4) Multiple rib fractures: Non-operative. - Pain control. - Incentive spirometry (5) Closed fracture of spinous process of cervical vertebra: Per ortho consult - [place] J collar to be worn at all times with exception of eating and bathing. Ms. Fuller was having some difficulty tolerating the collar. - Discussed with Lissa Stone from ortho spine - recommends soft collar if [place] J is intolerable. - Follow up with ortho spine in 2 weeks. [phone]. - Ambulate ad kim. - Calcitonin nasal spray (6) Hypertension: BP good today at 140/60. - Continue losartan 50mg (increased from admission) - Prn hydralazine (7) Diabetes mellitus type II, controlled: A1c 6.8%. - Sliding scale insulin - Hold home metformin for now (8) Elevated bilirubin: Tbili was 1.4 on admission; varying between 1.1 and 1.4. No abdominal complaints, nausea or vomiting. Rest of the LFTs are normal. Possible Gilbert's? - No inpatient needs (9) Dementia: PT/OT - will likely require rehab stay. Per CM, referral sent to [facility] (10) Hypothyroid: TSH was 1.1 in 09/2019. - Continue levothyroxine (11) Hyperlipidemia: Continue statin (12) DVT prophylaxis: SCDs PT/OT dispo - referral to [facility] Subjective In good spirits. No pain in the wrists or in the neck. Reports no fevers/chills, chest pain, shortness of breath, abdominal pain, nausea, or vomiting. Physical Exam Constitutional: WD/WN, vitals as above Eyes: EOM intact bilaterally; no conjunctival abnormality ENMT: external ear and nose normal, oropharynx normal Neck: + abnormal visual inspection (Neck brace on) Respiratory: normal respiratory effort, lungs clear to auscultation no respiratory distress Cardiovascular: RRR, no murmur, no edema Gastrointestinal (Abdomen): Inspection/Auscultation: abdomen normal to inspection; abdomen not distended Musculoskeletal: no cyanosis or clubbing, extremities motor strength 5/5 Extremities: + extremities abnormal to inspection (Wrists splints bilaterally) Skin: no rashes, warm and dry Neurologic: moves all extremities and awake Psychiatric: Orientation: alert, oriented to person and cooperative Results & Data Vital Signs (Past 12 Hours) Vital Signs Temp Pulse Resp BP Pulse Ox 12/09/19 17:22 64 139/63 12/09/19 16:19 192/71 H 12/09/19 15:19 37.2 C 72 18 207/75 H 94 PG Care Time/CCT Total # of Minutes Spent Total Time Spent with Patient: Total time spent is greater than 50% in coordination of care (as documented) at patient's floor/unit and/or counseling patient: (1) Fall Encounter type: initial encounter Qualified Code(s): W19.XXXA - Unspecified fall, initial encounter (2) Multiple rib fractures Encounter type: initial encounter Fracture type: closed Laterality: left Qualified Code(s): S22.42XA - Multiple fractures of ribs, left side, initial encounter for closed fracture (3) Closed fracture of spinous process of cervical vertebra Encounter type: initial encounter Qualified Code(s): S12.9XXA - Fracture of neck, unspecified, initial encounter
[2019-12-09] MEDS: SIMVASTATIN 20 MG TAB PO SCH (20:43)
[2019-12-10] MEDS: LEVOTHYROXINE SODIUM 125 MCG TABLET PO SCH (05:32)
[2019-12-10 06:12] LABS: Basophils # (auto) 0.02 K/uL (0-0.2); Basophils % (auto) 0.2 %; Eosinophils # (auto) 0.08 K/uL (0-0.5); Hemoglobin 12.3 g/dL (12.0-16.0); Immature Granulocytes # (auto) 0.05 K/uL (0.00-0.02); Immature Granulocytes % (auto) 0.6 %; Lymphocytes # (auto) 1.42 K/uL (1.2-3.4); Lymphocytes % (auto) 17.1 %; Mean Corpuscular Hgb Conc 34.2 g/dL (32-36); Mean Corpuscular Volume 90.7 fL (80-100); Mean Platelet Volume 10.4 fL (7.4-10.4); Monocytes # (auto) 0.78 K/uL (0.11-0.59); Monocytes % (auto) 9.4 %; Neutrophils # (auto) 5.97 K/uL (1.4-6.5); Neutrophils % (auto) 71.7 %; Platelet Count 199 K/uL (130-400); RDW Coefficient of Variation 13.4 % (11.5-14.5); RDW Standard Deviation 44.2 fL (36.4-46.3); Red Blood Count 3.97 M/uL (4.2-5.4); White Blood Count 8.32 K/uL (4.8-10.8)
[2019-12-10 06:42] LABS: Albumin Level 2.9 gm/dl (3.4-5.0); BUN Creatinine Ratio 31.9 (10-20); Calcium 8.9 mg/dl (8.5-10.1); Creatinine Clr Calc Pharmacy 40.7 ml/min; Est GFR (African American) 72.4; Est GFR (Non-African American) 62.5; Potassium 3.7 mmol/L (3.5-5.1)
[2019-12-10 06:45] LABS: Albumin Globulin Ratio 0.9 (0.9-2); Bilirubin,Total 1.1 mg/dl (0.2-1); Globulin 3.1 gm/dl (2.5-4.0)
[2019-12-10] MEDS: ACETAMINOPHEN 325 MG TAB PO PRN (07:35)
[2019-12-10] MEDS: LOSARTAN POTASSIUM 50 MG TAB PO SCH (07:35)
[2019-12-10] MEDS: CALCITONIN SALMON NA 200 IU/AC 3.7 ML BTL SCH (07:36)
[2019-12-10] MEDS: ESCITALOPRAM OXALATE 10 MG TAB PO SCH (07:36)
[2019-12-10] MEDS: HEPARIN SOD 5,000 UNIT/0.5 ML VIAL SQ SCH (09:05)
[2019-12-10] MEDS: INSULIN GLARGINE SOLOSTAR 100 UNITS/ML 3 ML PEN SC SCH (09:07)
[2019-12-10] MEDS: INSULIN ASPART 100 UNITS/ML 3 ML PEN SC SCH ×2 (09:09→12:07)
--- NOTE | 2019-12-10 11:32 | Discharge Summary ---
Date of Service December 10, 2019 Admission HPI Per Admitting Provider The patient is an 89 year old white female w/ PMHx of dementia and type 2 diabetes who presents to the ED after mechanical fall around 11:15 am. Per son, when he checked on the patient at 11:30, he found her laying at the bottom of the staircase saturated in urine. The patient states that she does not remember falling or hitting her head. The patients son states that he believes the patient fell down approximately 5-6 steps. The patient states that she has some left wrist and left rib pain. The patient denies abdominal pain, chest pain, head pain and shortness of breath. The patient states that she has not yet eaten anything today. The patient denies receiving any treatments prior to arrival. Cervical spine XR:. Fractures of the spinous processes of C5, C6, and C7. 1.Nondisplaced acute fractures left sixth seventh and eighth ribs. 2. No evidence of pneumothorax. 3. Multiple additional old healed left rib fractures. 4.Comminuted fracture distal radius extending to the articular surface. Mild dorsal angulation. Soft tissue edema. 5.Nondisplaced comminuted fracture distal radius. Soft tissue edema. Admit to PCU on tele Principal Diagnosis Fall resulting in broken wrists and neck Discharge Exam Constitutional WD/WN, vitals as above Eyes EOM intact bilaterally; no conjunctival abnormality ENMT external ear and nose normal, oropharynx normal Neck + abnormal visual inspection (Neck brace on) Respiratory normal respiratory effort, lungs clear to auscultation no respiratory distress Cardiovascular RRR, no murmur, no edema Gastrointestinal (Abdomen) Inspection/Auscultation: abdomen normal to inspection; abdomen not distended Musculoskeletal no cyanosis or clubbing, extremities motor strength 5/5 Extremities: + extremities abnormal to inspection (Wrists splints bilaterally) Skin no rashes, warm and dry Neurologic moves all extremities and awake Psychiatric Orientation: alert, oriented to person and cooperative Discharge Data Allergies Allergy/AdvReac Type Severity Reaction Status Date / Time No Known Allergies Allergy Unverified 12/05/19 13:50 Consultations 12/05/19 16:54 ED Decision to Admit Stat 12/05/19 21:14 Consult Orthopedic Surgery Routine Consult Orthopedic Surgery Stat Ordered Studies 12/05/19 14:12 CT cervical spine wo con Stat CT head/brain wo con Stat Hospital Course (1) Fall: Unclear reason, likely mechanical - patient was found by her son at the bottom of her staircase and she does not remember why she fell. - No events on tele monitor over 24 hours while monitored. - Head CT without acute change. - Orthostatics were normal. (2) Nondisplaced fracture of distal end of right radius: Consulted ortho - Nonoperative - She can stay in her current volar splint for now and may be switched to cock-up wrist splint at follow up with ortho next week. (3) Displaced fracture of distal end of left radius: Consulted orth - Nonoperative. Coaptation splint for now, follow up ortho 1 week, they will get repeat x-rays at that time. (4) Multiple rib fractures: Non-operative. - Pain control. - Incentive spirometry (5) Closed fracture of spinous process of cervical vertebra: CT cervical spine on 12/05 showed fractures of the spinous processes of C5, C6, and C7. Per ortho consult - [place] J collar to be worn at all times with exception of eating and bathing. Ms. Fuller was having some difficulty tolerating the collar. - Discussed with Lissa Stone from ortho spine - recommends soft collar if [place] J is intolerable. - Follow up with ortho spine in 2 weeks. [phone]. - Ambulate ad kim. (6) Hypertension: BP good today at 140/60. - Continue losartan 50mg (increased from admission) (7) Diabetes mellitus type II, controlled: A1c 6.8%. - Sliding scale insulin - Hold home metformin for now (8) Elevated bilirubin: Tbili was 1.4 on admission; varying between 1.1 and 1.4. No abdominal complaints, nausea or vomiting. Rest of the LFTs are normal. Possible Gilbert's? - No inpatient needs (9) Dementia: PT/OT - will likely require rehab stay. Per CM, referral sent to [facility] (10) Hypothyroid: TSH was 1.1 in 09/2019. - Continue levothyroxine (11) Hyperlipidemia: Continue statin (12) DVT prophylaxis: SCDs PT/OT dispo - referral to [facility] Total Time Total Time Spent Total Time Spent (In Minutes): 35 Discharge Plan Discharge Items Patient Disposition: Transfer Assisted Fac Reason For Visit: MECHANICAL FALL,WRIST FRACTURE Discharge Diagnosis: Fall with fractures of the wrists and neck Activity: Resume your previous activity Non-emergency contact: Primary Care Provider and Surgeon Call non-emergency contact if: your symptoms worsen and your pain is not controlled Follow-up/Referrals: Mahendra Johns MD [Primary Care Provider] - Ritchie Foss DO [Surgeon] - Daljit Alonso DO [Physician] - Diet: Carb Consistent or DM2 Addtl Attending Provider Instructions: Wrists: No gripping or lifting with either wrist for now. Non-weightbearing on both wrists. You may use your fingers. Follow-up with orthopedics in 1 week. We will get repeat x-rays when Dr. Alonso sees you in the office and treat you either in cast or a splint depending on how the x-rays look. Follow-up with Dr. Daljit Alonso. Call to make an appointment. Our office phone number is [phone]. For the neck: You must wear the soft collar at all times. You should see Dr. Jitendra Foss in his office in 1-2 weeks. The number for his office is [phone]. Please call to make an appointment. For medical changes, we did increase her losartan to 50mg due to consistently high blood pressures (as high as 175/75). We also put her on insulin in the hospital. While in the rehab, this could be continued. However, she could also be trialed on an oral regimen with an additional oral agent or increase in her metformin. Pending Studies at Discharge: No Stand-Alone Forms: My [facility] Skilled Items Patient informed of condition?: Yes DNR: No Discharge Level of Care: Acute rehab Communicable Disease: No Discharge Prognosis: Stable Lines: None Urinary Catheter: No Medications and DC Order Prescriptions: New insulin aspart U-100 [Novolog Flexpen U-100 Insulin] 100 unit/mL (3 mL) Insulin Pen See Rx Instructions .ROUTE .COMPLEX Qty: 3 RF: 0 Lantus Solostar U-100 Insulin 100 unit/mL (3 mL) Insulin Pen 10 unit SC QAM Qty: 3 RF: 0 Continued simvastatin 20 mg Tablet 20 mg PO HS RF: 0 levothyroxine 125 mcg Tablet 125 mcg PO DAILY RF: 0 metformin 500 mg Tablet Extended Release 24 Hr 500 mg PO PM RF: 0 escitalopram oxalate 10 mg Tablet 10 mg PO DAILY RF: 0 Changed losartan 25 mg Tablet 50 mg PO DAILY Qty: 0 RF: 0 Discharge Orders: Discharge Order (Routine); Ordered 12/10/19 Ordered By: Lester Macias Admission Data Admit Date/Time: 12/05/19 19:46 Attending Provider: Lester Macias Admit Provider: Cynthia Patel Primary Care Provider: Mahendra Johns Other Providers: Lester Macias ; Wendy Palomo ; Cynthia Patel ; Daljit Alonso ; Ritchie Foss
== END 2019-12-10 13:14 | DRG 552 ==
LOC: ED 13:25 → 2S 19:46 → SUATTDRO 19:46 → 2S 20:27 → 3N 12-06 14:43

== ENCOUNTER 2019-12-13 11:10 | Inpatient (IN) ==
[2019-12-13] MEDS ORDERED: SODIUM CHLORIDE 0.9% 500 ML IV ONE ×2 (11:39→13:26)
[2019-12-13] MEDS ORDERED: OPTIRAY 320 125ml IV PRN (11:59)
[2019-12-13 12:04] LABS: iSTAT Creatinine 0.8 mg/dl (0.6-1.3); iSTAT Hemoglobin 13.3 g/dl (12.0-16.0); iSTAT Ionized Calcium 1.21 mmol/l (1.12-1.32); iSTAT Potassium 4.2 mmol/L (3.3-5.0)
[2019-12-13 12:06] LABS: Basophils # (auto) 0.02 K/uL (0-0.2); Basophils % (auto) 0.2 %; Eosinophils # (auto) 0.03 K/uL (0-0.5); Eosinophils % (auto) 0.3 %; Hematocrit (blood only) 38.5 % (37-47); Hemoglobin 13.1 g/dL (12.0-16.0); Immature Granulocytes # (auto) 0.08 K/uL (0.00-0.02); Immature Granulocytes % (auto) 0.8 %; Lymphocytes # (auto) 1.49 K/uL (1.2-3.4); Lymphocytes % (auto) 14.7 %; Mean Corpuscular Hemoglobin 30.6 pg (25-34); Mean Platelet Volume 9.9 fL (7.4-10.4); Monocytes # (auto) 0.82 K/uL (0.11-0.59); Monocytes % (auto) 8.1 %; Neutrophils # (auto) 7.68 K/uL (1.4-6.5); Neutrophils % (auto) 75.9 %; Platelet Count 263 K/uL (130-400); RDW Coefficient of Variation 13.5 % (11.5-14.5); Red Blood Count 4.28 M/uL (4.2-5.4); White Blood Count 10.12 K/uL (4.8-10.8)
[2019-12-13 12:16] LABS: INR 1.1 (0.9-1.1); Partial Thromboplastin Ratio 0.8; Partial Thromboplastin Time 22.9 Seconds (21.0-31.0)
--- NOTE | 2019-12-13 12:17 | CT Scan Report ---
CT head/brain wo con CLINICAL HISTORY: Stroke evaluation RIGHT-SIDED WEAKNESS COMPARISON STUDY: 12/05/2019 TECHNIQUE: Axial CT of the brain is performed from the vertex to the skull base. IV contrast was not administered for this examination. A dose lowering technique was utilized adhering to the principles of ALARA. CT DOSE: FINDINGS: No intra or extra-axial mass lesions are visualized. There is no CT evidence of acute cortical infarc tion. There is no evidence of midline shift. There is no acute hemorrhage. No calvarial fractures ar e visualized. There are patchy white matter hypodensities likely on a small vessel basis. 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 There is no evidence of pathologic ventricular dilatation. There is no evidence of acute sinusitis IMPRESSION: No acute intracranial findings ACT 112: Negative or not required by law. Electronically signed by: Davian Woods M.D. 12/13/2019 12:16 PM
[2019-12-13 12:24] LABS: Alanine Aminotransferase 27 U/L (12-78); Albumin Level 3.6 gm/dl (3.4-5.0); Aspartate Aminotransferase 26 U/L (15-37); BUN Creatinine Ratio 28.1 (10-20); Blood Urea Nitrogen 25 mg/dl (7-18); Calcium 9.4 mg/dl (8.5-10.1); Carbon Dioxide 27 mmol/L (21-32); Chloride 103 mmol/L (98-107); Est GFR (African American) 66.6; Est GFR (Non-African American) 57.5; Glucose 132 mg/dl (70-99); Magnesium 1.9 mg/dl (1.8-2.4); Potassium 4.2 mmol/L (3.5-5.1); Sodium 137 mmol/L (136-145)
--- NOTE | 2019-12-13 12:26 | CT Scan Report ---
CT angio neck with con, CT angio head w con CLINICAL HISTORY: 89 years-old Female with Right sided weakness. Acute stroke like symptoms COMPARISON STUDY: CT head of same day, CT cervical spine 12/05/2019, CTA head 03/23/2016 TECHNIQUE: Following the IV administration of 120 mL of Optiray 320, CT angiogram of the head and nec k was performed from the aortic arch to the skull base. Images are reviewed in the axial, sagittal, a nd coronal planes. 3-D MIPS images are created and assessed. IV contrast was administered without com plication. All measurements were calculated based on NASCET criteria. A dose lowering technique was utilized adhering to the principles of ALARA. CT DOSE: 1119.06 mGy.cm FINDINGS: The imaged opacified pulmonary arterial tree is unremarkable. Three-vessel morphology of aortic arch. Patency of the imaged bilateral subclavian arteries. Innominate artery is patent and normal. Patent bilateral common carotid arteries. Mild mixed plaque of the bilateral carotid bulbs without significa nt stenosis. The bilateral internal carotid arteries are widely patent. Calcified plaque of the renee nous and supraclinoid segments without high-grade stenosis. There is mild luminal narrowing of the cook praclinoid left ICA and less than 50% secondary to atheromatous plaque. Mild and moderate multifocal luminal narrowing involves the bilateral middle cerebral arteries. Focal short segment area of high-grade stenosis involves the A2 segment left anterior cerebral artery on i mage 124 series 5. Anterior communicating artery appears unremarkable. Dominant right vertebral artery. There is multifocal tortuosity noted about the left vertebral artery . Calcified plaque involves the bilateral V4 segments of the vertebral arteries resulting in less imani n 50% stenosis bilaterally. 4 mm saccular outpouching of the basilar tip extending into the origin of the left posterior cerebral artery is unchanged. Multifocal at least moderate luminal narrowing thro ughout the left posterior cerebral artery. Multi focal high-grade stenosis of the right posterior cer ebral artery P1 segment, for example image 105 of series 5 is new from the 2016 exam. Cerebral venous sinuses are patent. There is no abnormal intracranial enhancement identified. No pneumothorax. Heterogeneous thyroid. Soft tissues are unremarkable. Degenerative changes of the sp ine. IMPRESSION: 1. 5 mm saccular outpouching at the basilar tip is unchanged from 2016 and is suggestive of a vascula r pedicle/ectasia rather than a saccular aneurysm. 2. 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 3. Mild and moderate multifocal luminal narrowing of the bilateral middle cerebral arteries. 4. Focal short segment area of high-grade stenosis involves the A2 segment left anterior cerebral art carmen. 5. Mild mixed plaque of the carotid bulbs without significant stenosis. ACT 112: Negative or not required by law. The above report was generated using voice recognition software. It may contain grammatical, syntax o r spelling errors. Electronically signed by: Darren Zamora M.D. 12/13/2019 12:25 PM
[2019-12-13 12:28] LABS: Albumin Globulin Ratio 1.1 (0.9-2); Alkaline Phosphatase 130 U/L (45-117); Globulin 3.4 gm/dl (2.5-4.0); Phosphorus 4.1 mg/dl (2.5-4.9); Troponin I < 0.015 ng/ml (0-0.045)
[2019-12-13 12:48] LABS: Appearance Urine Clear (Clear); Bacteria Urine Automated Negative (Negative); Bilirubin Urine Negative (Negative); Blood Urine Negative (Negative); Color Urine Yellow; Epithelial Cell Urine Auto >30 /lpf (0-5); Glucose Urine UA Negative (Negative); Ketones Urine Negative (Negative); Leukocyte Esterase Urine 1+ (Negative); Nitrite Urine Negative (Negative); Protein Urine Trace (Negative); RBC Urine Automated 0-4 /hpf (0-4); Specific Gravity Urine 1.045 (1.000-1.030); Urobilinogen Urine Negative (Negative)
--- NOTE | 2019-12-13 13:03 | XRay Report ---
XR hip RT 2V w pelvis CLINICAL HISTORY: Right hip weakness, fall dementia pain. Dementia. Mental status change. COMPARISON: None. DISCUSSION: Moderate degenerative change of the hips bilaterally. No evidence for fracture or disloca tion. No evidence for acetabular protrusion. There is no evidence for soft tissue swelling. IMPRESSION: Moderate degenerative change. No acute process. ACT 112: Negative or not required by law. The above report was generated using voice recognition software. It may contain grammatical, syntax or spelling errors. Electronically signed by: Jay Mattson M.D. 12/13/2019 1:01 PM
--- NOTE | 2019-12-13 13:57 | XRay Report ---
XR chest 1V portable CLINICAL HISTORY: weakness COMPARISON STUDY: 12/05/2019 FINDINGS: The heart remains enlarged. There is no focal pulmonary consolidation. There is no failure. Linear opacities the right lung base are likely atelectatic.[There are no significant pleural effusi ons. Several rib fractures are visualized. There is no pneumothorax. IMPRESSION: 1. Cardiomegaly 2. Right basilar atelectasis 3. No evidence of failure. ACT 112: Negative or not required by law. Electronically signed by: Davian Woods M.D. 12/13/2019 1:56 PM
--- NOTE | 2019-12-13 14:50 | Electrocardiogram Report ---
Test Reason : Blood Pressure : / mmHG Vent. Rate : 068 BPM Atrial Rate : 068 BPM P-R Int : 138 ms QRS Dur : 082 ms QT Int : 414 ms P-R-T Axes : 058 -02 -03 degrees QTc Int : 440 ms Normal sinus rhythm T wave abnormality, consider anterior ischemia Abnormal ECG When compared with ECG of 05-DEC-2019 13:49, T wave inversion now evident in Inferior leads Inverted T waves have replaced nonspecific T wave abnormality in Anterior leads Confirmed by Jeyson Prieto ([id number]) on 12/13/2019 2:49:56 PM Referred By: [facility] Confirmed By:Jeyson Prieto
--- NOTE | 2019-12-13 15:15 | History & Physical Report ---
Date of Service December 13, 2019 Assessment & Plan (1) Stroke-like symptoms: Suspected left sided infarct. MRI brain ordered. SLT Echo ASA, will switch from simvastatin to atorvastatin based on MRI and lipid results Consult neurology Keep BP > 180 initially (2) Hypertensive emergency: Consistently high BP > 220 therefore started on labetalol drip. (3) Diabetes mellitus type II, controlled: Recent A1C 6.8. Will hold metformin and add insulin sliding scale for correction only. (4) Hyperlipidemia: Continue simvastatin, switch to atorvastatin based on MRI and lipid results. (5) Hypothyroid: Continue levothyroxine (6) Nondisplaced fracture of distal end of right radius: Will need to check when she is due to see ortho and have cast changed if she stays for a few days, or make sure set up with outpatient follow up. (7) Displaced fracture of distal end of left radius: as above. (8) DVT prophylaxis: Heparin 5000 units SQ BID History of Present Illness Chief Complaint: Stroke-like symptoms Primary Care Provider: Mahendra Johns MD Kathy Bowsell is an 89 year old female from [facility] due to right sided stroke like symptoms with last known well around 9:30pm the previous night. History from patient is limited due to dementia therefore taken from the provided documentation from [facility] and ER notes. At 4am today she woke up and was noted to have right sided leg weakness however that then progressed to her right arm and slurring of speech noticed by staff. Her BP was noted to be elevated therefore was sent via EMS to the ER to assess for acute CVA. She was recently discharged due to a fall with resultant b/l wrist fractures and C5-7 fracture in a soft collar. Allergies Allergy/AdvReac Type Severity Reaction Status Date / Time No Known Allergies Allergy Unverified 12/13/19 11:53 Home Medications Home Medications Medication Instructions Recorded Confirmed Type escitalopram oxalate 10 mg PO QAM 12/05/19 12/13/19 History levothyroxine 125 mcg PO QAM 12/05/19 12/13/19 History metformin 500 mg PO QPM 12/05/19 12/13/19 History insulin glargine [Lantus Solostar 10 unit SC QAM #3 ml 12/10/19 12/13/19 Rx U-100 Insulin] losartan 50 mg PO QAM 12/13/19 12/13/19 History Past Med/Surg History Medical History Dementia Diabetes mellitus type II, controlled Hyperlipidemia Hypertension Hypothyroid Surgical History H/O: hysterectomy (Resolved) Social History Preferred Language: [place]ambian Communication Ability: Effective Bag Inspector Required: No Beliefs That Will Affect Care: None Current Living Situation: Personal Care Facility Other Information That Helps Us Care for You: No Feels Safe at Home: Yes Safety Concerns: Feels Safe At This Time Smoking Status: Never smoker Hx Alcohol Use: No Hx Substance Use: No Review of Systems Review of Systems: Unobtainable due to cognitive status Physical Exam Constitutional: well developed; + not well nourished and no acute distress Eyes: PERRL, conjunctivae normal, anicteric sclerae ENMT: external ear and nose normal, oropharynx normal Neck: trachea midline, no thyromegaly Gastrointestinal (Abdomen): normal bowel sounds, soft, nontender, no hepatosplenomegaly Musculoskeletal: Bilateral upper extremities in casts, neck in soft collar. Skin: no rashes, warm and dry Neurologic: + focal motor deficit (RLE > RUE weakness (RUE in cast)), awake and + confused Speech / Cognition: normal speech Motor/Sensory: + pronator drift (right sided); no tremor Cranial Nerves: sense of smell intact, PERRL, normal accommodation, EOM intact bilaterally, normal facial strength, able to rotate head bilaterally, able to elevate shoulders bilaterally and no nystagmus Coordination: + abnormal [id number] test (right sided reduced UE co- ordination) Psychiatric: Orientation: alert and cooperative; + not oriented x 3 Eye Contact: good eye contact Lymphatic: no cervical or axillary lymphadenopathy Results & Data Vital Signs (Past 12 Hours) Vital Signs Temp Pulse Resp BP Pulse Ox 12/13/19 14:01 68 16 94 12/13/19 14:00 66 18 201/118 H 94 12/13/19 13:51 64 21 211/127 H 95 12/13/19 13:45 63 19 95 12/13/19 13:31 63 16 95 12/13/19 13:30 64 17 212/131 H 95 12/13/19 13:15 65 18 94 12/13/19 13:11 65 20 223/120 H 94 12/13/19 13:10 63 20 94 12/13/19 12:49 66 17 216/109 H 91 12/13/19 12:45 70 19 91 12/13/19 12:30 69 22 94 12/13/19 12:15 70 20 93 12/13/19 12:09 71 21 95 12/13/19 11:45 68 21 12/13/19 11:30 69 20 12/13/19 11:18 67 17 93 12/13/19 11:16 68 14 188/91 H 93 12/13/19 11:00 37.1 C 67 19 93 Code Status & VTE Plan Code Status Full as per [facility] notes VTE Prophylaxis Plan VTE Prophylaxis will be ordered: Yes PG Care Time/CCT Total # of Minutes Spent Total Time Spent with Patient: Total time spent is greater than 50% in coordination of care (as documented) at patient's floor/unit and/or counseling patient: (1) Diabetes mellitus type II, controlled Diabetes mellitus joint terminal attack controller insulin use: without joint terminal attack controller use Diabetes mellitus complication status: with unspecified complications Qualified Code(s): E11.8 - Type 2 diabetes mellitus with unspecified complications (2) Hyperlipidemia Hyperlipidemia type: unspecified Qualified Code(s): E78.5 - Hyperlipidemia, unspecified (3) Hypothyroid Hypothyroidism type: unspecified Qualified Code(s): E03.9 - Hypothyroidism, unspecified
[2019-12-13] MEDS ORDERED: PHARMACIST DISCHARGE MED REC CONSULT PRN (17:04)
[2019-12-13] MEDS ORDERED: CARBOHYDRATES FOR HYPOGLYCEMIA PO PRN (17:46)
[2019-12-13] MEDS ORDERED: GLUCOSE 40% GEL 15 GM TUBE PO PRN (17:46)
[2019-12-13] MEDS ORDERED: GLUCAGON FOR INJ 1 MG VIAL SQ PRN (17:46)
[2019-12-13] MEDS ORDERED: GLUCOSE 10 TABS/TUBE PO PRN (17:46)
[2019-12-13] MEDS ORDERED: DEXTROSE 50% 50 ML SYRINGE IV PRN (17:46)
--- NOTE | 2019-12-13 17:46 | Emergency Department Note ---
Entered by Hali Yuen acting as a scribe for Mohsen Singh MD History of Present Illness General Chief complaint: Stroke/CVA Symptoms Stated complaint: stroke symptoms Time Seen by Provider: 12/13/19 11:21 Source: patient Mode of arrival: EMS History of Present Illness Onset (ago): hour(s) (0400 today) Location: head (neuro symptoms) Pain Consistency: + other (persistent) Quality: + other (neuro symptoms) Associated symptoms: + weakness and + other (right sided weakness, right sided facial droop, slurred speech) The patient is an 89 year old female presenting to the Emergency Department via EMS complaining of persistent neuro symptoms starting at 0400 today. The patients nurse reports that the patient cannot lift her right arm or leg as they are too weak. She states that the patient has right sided facial droop. She explains that the patient fell about 1 week ago and broke both of her wrists. The patient notes that she did fall but doesnt remember when. She adds that her right arm and right leg have been weak since her fall. EMS reports that that the patient has right sided weakness and slurred speech at 0400 today. They state that the patients last known well time is unknown. The HPI and ROS are limited due to dementia. Home Medications Home Medications Medication Instructions Recorded Confirmed Type escitalopram oxalate 10 mg PO QAM 12/05/19 12/13/19 History levothyroxine 125 mcg PO QAM 12/05/19 12/13/19 History metformin 500 mg PO QPM 12/05/19 12/13/19 History insulin glargine [Lantus Solostar 10 unit SC QAM #3 ml 12/10/19 12/13/19 Rx U-100 Insulin] losartan 50 mg PO QAM 12/13/19 12/13/19 History Allergies Allergy/AdvReac Type Severity Reaction Status Date / Time No Known Allergies Allergy Unverified 12/13/19 11:53 Past Med/Surg History Medical History Dementia Diabetes mellitus type II, controlled Hyperlipidemia Hypertension Hypothyroid Surgical History H/O: hysterectomy (Resolved) Social History Preferred Language: Chilean Communication Ability: Effective [employer]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 Physical Exam Vital Signs Vital Signs - 24 hr 12/13/19 11:00 12/13/19 11:16 12/13/19 11:18 Temperature 37.1 C Temperature Source Oral Pulse Rate 67 68 67 Pulse Rate from SpO2 Sensor 68 67 Pulse Rhythm Regular Respiratory Rate 19 14 17 Respiratory Effort / Characteristics Non-Labored Respiratory Depth Normal Respiratory Pattern Regular Blood Pressure 188/91 H 188/91 H Blood Pressure Mean 123 107 Blood Pressure Position Lying Pulse Oximetry 93 93 93 Oxygen Delivery Method Room Air Sepsis Recent Fever Within 48 Hours No Sepsis Action Taken by Nursing No Action Required 12/13/19 11:22 12/13/19 11:30 12/13/19 11:45 Temperature Temperature Source Pulse Rate 69 68 Pulse Rate from SpO2 Sensor Pulse Rhythm Respiratory Rate 20 21 Respiratory Effort / Characteristics Respiratory Depth Respiratory Pattern Blood Pressure Blood Pressure Mean Blood Pressure Position Pulse Oximetry Oxygen Delivery Method Room Air Sepsis Recent Fever Within 48 Hours Sepsis Action Taken by Nursing 12/13/19 12:09 12/13/19 12:15 12/13/19 12:30 Temperature Temperature Source Pulse Rate 71 70 69 Pulse Rate from SpO2 Sensor 71 70 69 Pulse Rhythm Respiratory Rate 21 20 22 Respiratory Effort / Characteristics Respiratory Depth Respiratory Pattern Blood Pressure Blood Pressure Mean Blood Pressure Position Pulse Oximetry 95 93 94 Oxygen Delivery Method Sepsis Recent Fever Within 48 Hours Sepsis Action Taken by Nursing 12/13/19 12:45 12/13/19 12:49 12/13/19 13:10 Temperature Temperature Source Pulse Rate 70 66 63 Pulse Rate from SpO2 Sensor 69 66 64 Pulse Rhythm Respiratory Rate 19 17 20 Respiratory Effort / Characteristics Respiratory Depth Respiratory Pattern Blood Pressure 216/109 H Blood Pressure Mean 161 Blood Pressure Position Pulse Oximetry 91 91 94 Oxygen Delivery Method Sepsis Recent Fever Within 48 Hours Sepsis Action Taken by Nursing 12/13/19 13:11 12/13/19 13:15 12/13/19 13:30 Temperature Temperature Source Pulse Rate 65 65 64 Pulse Rate from SpO2 Sensor 64 65 64 Pulse Rhythm Respiratory Rate 20 18 17 Respiratory Effort / Characteristics Respiratory Depth Respiratory Pattern Blood Pressure 223/120 H 212/131 H Blood Pressure Mean 180 184 Blood Pressure Position Pulse Oximetry 94 94 95 Oxygen Delivery Method Sepsis Recent Fever Within 48 Hours Sepsis Action Taken by Nursing 12/13/19 13:31 12/13/19 13:45 12/13/19 13:51 Temperature Temperature Source Pulse Rate 63 63 64 Pulse Rate from SpO2 Sensor 64 63 64 Pulse Rhythm Respiratory Rate 16 19 21 Respiratory Effort / Characteristics Respiratory Depth Respiratory Pattern Blood Pressure 211/127 H Blood Pressure Mean 174 Blood Pressure Position Pulse Oximetry 95 95 95 Oxygen Delivery Method Sepsis Recent Fever Within 48 Hours Sepsis Action Taken by Nursing 12/13/19 14:00 12/13/19 14:01 12/13/19 14:15 Temperature Temperature Source Pulse Rate 66 68 66 Pulse Rate from SpO2 Sensor 67 69 66 Pulse Rhythm Respiratory Rate 18 16 18 Respiratory Effort / Characteristics Respiratory Depth Respiratory Pattern Blood Pressure 201/118 H Blood Pressure Mean 174 Blood Pressure Position Pulse Oximetry 94 94 94 Oxygen Delivery Method Sepsis Recent Fever Within 48 Hours Sepsis Action Taken by Nursing 12/13/19 14:30 12/13/19 14:31 12/13/19 14:45 Temperature Temperature Source Pulse Rate 66 65 65 Pulse Rate from SpO2 Sensor 66 65 66 Pulse Rhythm Respiratory Rate 14 20 22 Respiratory Effort / Characteristics Respiratory Depth Respiratory Pattern Blood Pressure 206/122 H Blood Pressure Mean 176 Blood Pressure Position Pulse Oximetry 94 94 94 Oxygen Delivery Method Sepsis Recent Fever Within 48 Hours Sepsis Action Taken by Nursing 12/13/19 15:00 12/13/19 15:01 12/13/19 15:15 Temperature Temperature Source Pulse Rate 64 67 67 Pulse Rate from SpO2 Sensor 63 67 67 Pulse Rhythm Respiratory Rate 18 18 19 Respiratory Effort / Characteristics Respiratory Depth Respiratory Pattern Blood Pressure 225/128 H Blood Pressure Mean 200 Blood Pressure Position Pulse Oximetry 95 95 90 Oxygen Delivery Method Sepsis Recent Fever Within 48 Hours Sepsis Action Taken by Nursing 12/13/19 15:30 12/13/19 15:31 12/13/19 15:45 Temperature Temperature Source Pulse Rate 63 63 62 Pulse Rate from SpO2 Sensor Pulse Rhythm Respiratory Rate 14 18 15 Respiratory Effort / Characteristics Respiratory Depth Respiratory Pattern Blood Pressure 198/122 H Blood Pressure Mean 168 Blood Pressure Position Pulse Oximetry Oxygen Delivery Method Sepsis Recent Fever Within 48 Hours Sepsis Action Taken by Nursing 12/13/19 15:48 Temperature Temperature Source Pulse Rate Pulse Rate from SpO2 Sensor Pulse Rhythm Respiratory Rate Respiratory Effort / Characteristics Respiratory Depth Respiratory Pattern Blood Pressure Blood Pressure Mean Blood Pressure Position Pulse Oximetry Oxygen Delivery Method Room Air Sepsis Recent Fever Within 48 Hours Sepsis Action Taken by Nursing GENERAL: Patient is pleasantly confused. Awake, alert, well-appearing, in no distress HENT: Normocephalic, atraumatic. Oropharynx unremarkable. Mucous membranes dry. EYES: Normal conjunctiva. Sclera non-icteric. NECK: Supple. No nuchal rigidity. FROM. No JVD. RESPIRATORY: CTAB. CARDIAC: Regular rate, normal rhythm. Extremities warm and well perfused. Pulses equal. ABDOMEN: Soft, non-distended. No tenderness to palpation. No rebound or guarding. No masses. RECTAL: Deferred. MUSCULOSKELETAL: Chest examination reveals no tenderness. The back is symmetrical on inspection without obvious abnormality. There is no CVA tenderness to palpation. No joint edema. LOWER EXTREMITIES: Calves are equal size bilaterally and non-tender. No edema. No discoloration. NEURO: Face is symmetric. Speech is fluent. 4/5 strength in RUE. 3/5 strength in RLE. SKIN: No rash or jaundice noted. Course Course 1126: The patient was evaluated in room C9, and a complete history and physical examination were performed. 1335: I discussed the patients case with Dr. Kerri AUGUSTIN hospitalist. He will evaluate the patient for further management. Administered Medications Ioversol (Optiray 320 125ml) 120 ml IV ONCE PRN PRN Reason: Interaction Checking Stop: 12/17/19 11:58 Last Admin: 12/13/19 12:00 Dose: 120 ml Documented by: [id number] Discontinued Medications Sodium Chloride (Nss) 500 mls @ 999 mls/hr IV .Q31M ONE Stop: 12/13/19 12:09 Last Infusion: 12/13/19 13:21 Dose: 0 mls/hr Documented by: [id number] Admin: 12/13/19 12:50 Dose: 999 mls/hr Documented by: [id number] Sodium Chloride (Nss) 500 mls @ 999 mls/hr IV .Q31M ONE Stop: 12/13/19 13:56 Last Admin: 12/13/19 14:02 Dose: 999 mls/hr Documented by: [id number] Medical Decision Making Differential Diagnosis Differential Diagnosis includes but is not limited to dehydration, stroke, anemia, hypoglycemia, hyponatremia, hypernatremia, urinary tract infection, pneumonia, bronchitis, sepsis, gastroenteritis, additional abdominal pathology, metabolic abnormalities and infections. Medical Records Attestation: I reviewed the patient's medical records. Home Medications Current Medication List: was personally reviewed by me Laboratory Data Attestation: I reviewed the patient's lab results. Result diagrams: 12/13/19 11:41 12/13/19 11:41 Lab Results 12/13/19 12/13/19 12/13/19 Range/Units 11:19 11:41 11:41 WBC 10.12 (4.8-10.8) K/uL RBC 4.28 (4.2-5.4) M/uL Hgb 13.1 (12.0-16.0) g/dL POC Hgb (12.0-16.0) g/dl Hct 38.5 (37-47) % POC Hct (37-47) % MCV 90.0 (80-100) fL MCH 30.6 (25-34) pg MCHC 34.0 (32-36) g/dL RDW Std Deviation 44.0 (36.4-46.3) fL RDW Coeff of Hunter 13.5 (11.5-14.5) % Plt Count 263 (130-400) K/uL MPV 9.9 (7.4-10.4) fL Immature Gran % (Auto) 0.8 % Neut % (Auto) 75.9 % Lymph % (Auto) 14.7 % [place] % (Auto) 8.1 % Eos % (Auto) 0.3 % Baso % (Auto) 0.2 % Immature Gran # (Auto) 0.08 H (0.00-0.02) K/uL Neut # (Auto) 7.68 H (1.4-6.5) K/uL Lymph # (Auto) 1.49 (1.2-3.4) K/uL [place] # (Auto) 0.82 H (0.11-0.59) K/uL Eos # (Auto) 0.03 (0-0.5) K/uL Baso # (Auto) 0.02 (0-0.2) K/uL PT 11.0 (9.0-12.0) Seconds INR 1.1 (0.9-1.1) APTT 22.9 (21.0-31.0) Seconds PTT Ratio 0.8 POC Sodium (135-144) mmol/L Sodium (136-145) mmol/L POC Potassium (3.3-5.0) mmol/L Potassium (3.5-5.1) mmol/L POC Chloride (101-112) mmol/L Chloride (98-107) mmol/L Carbon Dioxide (21-32) mmol/L POC Total CO2 (24-31) mEq/l Anion Gap (3-11) POC Anion Gap (16-25) mmol/L POC BUN (7-18) mg/dl BUN (7-18) mg/dl Creatinine (0.6-1.2) mg/dl POC Creatinine (0.6-1.3) mg/dl Est Cr Clr Drug Dosing ml/min Est GFR ( Amer) Est GFR (Non-Af Amer) BUN/Creatinine Ratio (10-20) Glucose (70-99) mg/dl POC Glucose 146 H (70-99) mg/dl POC Glucose (other) (70-99) mg/dl Calcium (8.5-10.1) mg/dl POC Ioniz Calcium Ling (1.12-1.32) mmol/l Phosphorus (2.5-4.9) mg/dl Magnesium (1.8-2.4) mg/dl Total Bilirubin (0.2-1) mg/dl AST (15-37) U/L ALT (12-78) U/L Alkaline Phosphatase (45-117) U/L Troponin I (0-0.045) ng/ml Total Protein (6.4-8.2) gm/dl Albumin (3.4-5.0) gm/dl Globulin (2.5-4.0) gm/dl Albumin/Globulin Ratio (0.9-2) Urine Color Urine Appearance (Clear) Urine pH (4.5-7.5) Ur Specific Carmi (1.000-1.030) Urine Protein (Negative) Urine Glucose (UA) (Negative) Urine Ketones (Negative) Urine Blood (Negative) Urine Nitrite (Negative) Urine Bilirubin (Negative) Urine Urobilinogen (Negative) Ur Leukocyte Esterase (Negative) Urine WBC (Auto) (0-5) /hpf Urine RBC (Auto) (0-4) /hpf U Hyaline Cast (Auto) (0-5) /lpf U Epithel Cells (Auto) (0-5) /lpf Urine Bacteria (Auto) (Negative) 12/13/19 12/13/19 12/13/19 Range/Units 11:41 11:52 12:20 WBC (4.8-10.8) K/uL RBC (4.2-5.4) M/uL Hgb (12.0-16.0) g/dL POC Hgb 13.3 (12.0-16.0) g/dl Hct (37-47) % POC Hct 39 (37-47) % MCV (80-100) fL MCH (25-34) pg MCHC (32-36) g/dL RDW Std Deviation (36.4-46.3) fL RDW Coeff of Hunter (11.5-14.5) % Plt Count (130-400) K/uL MPV (7.4-10.4) fL Immature Gran % (Auto) % Neut % (Auto) % Lymph % (Auto) % [place] % (Auto) % Eos % (Auto) % Baso % (Auto) % Immature Gran # (Auto) (0.00-0.02) K/uL Neut # (Auto) (1.4-6.5) K/uL Lymph # (Auto) (1.2-3.4) K/uL [place] # (Auto) (0.11-0.59) K/uL Eos # (Auto) (0-0.5) K/uL Baso # (Auto) (0-0.2) K/uL PT (9.0-12.0) Seconds INR (0.9-1.1) APTT (21.0-31.0) Seconds PTT Ratio POC Sodium 136 (135-144) mmol/L Sodium 137 (136-145) mmol/L POC Potassium 4.2 (3.3-5.0) mmol/L Potassium 4.2 (3.5-5.1) mmol/L POC Chloride 100 L (101-112) mmol/L Chloride 103 (98-107) mmol/L Carbon Dioxide 27 (21-32) mmol/L POC Total CO2 25 (24-31) mEq/l Anion Gap 7.0 (3-11) POC Anion Gap 16.0 (16-25) mmol/L POC BUN 23 H (7-18) mg/dl BUN 25 H (7-18) mg/dl Creatinine 0.90 (0.6-1.2) mg/dl POC Creatinine 0.8 (0.6-1.3) mg/dl Est Cr Clr Drug Dosing 38.0 ml/min Est GFR ( Amer) 66.6 Est GFR (Non-Af Amer) 57.5 BUN/Creatinine Ratio 28.1 H (10-20) Glucose 132 H (70-99) mg/dl POC Glucose (70-99) mg/dl POC Glucose (other) 137 H (70-99) mg/dl Calcium 9.4 (8.5-10.1) mg/dl POC Ioniz Calcium Ling 1.21 (1.12-1.32) mmol/l Phosphorus 4.1 (2.5-4.9) mg/dl Magnesium 1.9 (1.8-2.4) mg/dl Total Bilirubin 1.0 (0.2-1) mg/dl AST 26 (15-37) U/L ALT 27 (12-78) U/L Alkaline Phosphatase 130 H (45-117) U/L Troponin I < 0.015 (0-0.045) ng/ml Total Protein 7.0 (6.4-8.2) gm/dl Albumin 3.6 (3.4-5.0) gm/dl Globulin 3.4 (2.5-4.0) gm/dl Albumin/Globulin Ratio 1.1 (0.9-2) Urine Color Yellow Urine Appearance Clear (Clear) Urine pH 7.0 (4.5-7.5) Ur Specific Carmi 1.045 H (1.000-1.030) Urine Protein Trace H (Negative) Urine Glucose (UA) Negative (Negative) Urine Ketones Negative (Negative) Urine Blood Negative (Negative) Urine Nitrite Negative (Negative) Urine Bilirubin Negative (Negative) Urine Urobilinogen Negative (Negative) Ur Leukocyte Esterase 1+ H (Negative) Urine WBC (Auto) 1-5 (0-5) /hpf Urine RBC (Auto) 0-4 (0-4) /hpf U Hyaline Cast (Auto) 1-5 (0-5) /lpf U Epithel Cells (Auto) >30 H (0-5) /lpf Urine Bacteria (Auto) Negative (Negative) Imaging Data Radiologist's Impression: Radiology results as stated below per my review and the radiologist's interpretation: CT angio neck with con, CT angio head w con CLINICAL HISTORY: 89 years-old Female with Right sided weakness. Acute stroke like symptoms COMPARISON STUDY: CT head of same day, CT cervical spine 12/05/2019, CTA head 03/23/2016 TECHNIQUE: Following the IV administration of 120 mL of Optiray 320, CT angiogram of the head and neck was performed from the aortic arch to the skull base. Images are reviewed in the axial, sagittal, and coronal planes. 3-D MIPS images are created and assessed. IV contrast was administered without co mplication. All measurements were calculated based on NASCET criteria. A dose lowering technique was utilized adhering to the principles of ALARA. CT DOSE: 1119.06 mGy.cm FINDINGS: The imaged opacified pulmonary arterial tree is unremarkable. Three-vessel morphology of aortic arch. Patency of the imaged bilateral subclavian arteries. Innominate artery is patent and normal. Patent bilateral common carotid arteries. Mild mixed plaque of the bilateral carotid bulbs without significant stenosis. The bilateral internal carotid arteries are widely patent. Calcified plaque of the cavernous and supraclinoid segments without high-grade stenosis. There is mild luminal narrowing of the supraclinoid left ICA and less than 50% secondary to atheromatous plaque. Mild and moderate multifocal luminal narrowing involves the bilateral middle cerebral arteries. Focal short segment area of high-grade stenosis involves the A2 segment left anterior cerebral artery on image 124 series 5. Anterior communicating artery appears unremarkable. Dominant right vertebral artery. There is multifocal tortuosity noted about the left vertebral artery. Calcified plaque involves the bilateral V4 segments of the vertebral arteries resulting in less than 50% stenosis bilaterally. 4 mm saccular outpouching of the basilar tip extending into the origin of the left posterior cerebral artery is unchanged. Multifocal at least moderate luminal narrowing throughout the left posterior cerebral artery. Multi focal high-grade stenosis of the right posterior cerebral artery P1 segment, for example image 105 of series 5 is new from the 2016 exam. Cerebral venous sinuses are patent. There is no abnormal intracranial enhancement identified. No pneumothorax. Heterogeneous thyroid. Soft tissues are unremarkable. Degener ative changes of the spine. IMPRESSION: 1. 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 2. 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 3. Mild and moderate multifocal luminal narrowing of the bilateral middle cerebral arteries. 4. Focal short segment area of high-grade stenosis involves the A2 segment left anterior cerebral artery. 5. Mild mixed plaque of the carotid bulbs without significant stenosis. ACT 112: Negative or not required by law. The above report was generated using voice recognition software. It may contain grammatical, syntax or spelling errors. Electronically signed by: Darren Zamora M.D. 12/13/2019 12:[address] head/brain wo con CLINICAL HISTORY: Stroke evaluation RIGHT-SIDED WEAKNESS COMPARISON STUDY: 12/05/2019 TECHNIQUE: Axial CT of the brain is performed from the vertex to the skull base. IV contrast was not administered for this examination. A dose lowering technique was utilized adhering to the principles of ALARA. CT DOSE: FINDINGS: No intra or extra-axial mass lesions are visualized. There is no CT evidence of acute cortical infarction. There is no evidence of midline shift. There is no acute hemorrhage. No calvarial fractures are visualized. There are patchy white matter hypodensities likely on a small vessel basis. 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 There is no evidence of pathologic ventricular dilatation. There is no evidence of acute sinusitis IMPRESSION: No acute intracranial findings ACT 112: Negative or not required by law. Electronically signed by: Davian Woods M.D. 12/13/2019 12:16 PM XR chest 1V portable CLINICAL HISTORY: weakness COMPARISON STUDY: 12/05/2019 FINDINGS: The heart remains enlarged. There is no focal pulmonary consolidation. There is no failure. Linear opacities the right lung base are likely atelectatic.[There are no significant pleural effusions. Several rib fractures are visualized. There is no pneumothorax. IMPRESSION: 1. Cardiomegaly 2. Right basilar atelectasis 3. No evidence of failure. ACT 112: Negative or not required by law. Electronically signed by: Davian Woods M.D. 12/13/2019 1:56 PM XR hip RT 2V w pelvis CLINICAL HISTORY: Right hip weakness, fall dementia pain. Dementia. Mental status change. COMPARISON: None. DISCUSSION: Moderate degenerative change of the hips bilaterally. No evidence for fracture or dislocation. No evidence for acetabular protrusion. There is no evidence for soft tissue swelling. IMPRESSION: Moderate degenerative change. No acute process. ACT 112: Negative or not required by law. The above report was generated using voice recognition software. It may contain grammatical, syntax or spelling errors. Electronically signed by: Jay Mattson M.D. 12/13/2019 1:01 PM ECG Data Attestation: I personally reviewed and interpreted this ECG as follows: Indication: + weakness and + other (neuro symptoms) Rate (beats per minute): 68 Rhythm: + sinus rhythm ECG ST segments: no ST depression and no ST elevation ECG Findings: + Other (T wave abnormality anteriorly. QT-c 440.) Blood Pressure Blood Pressure Findings: Elevated blood pressure Blood Pressure Disposition: Referred to patients primary care provider [facility] Narrative The patient is a pleasant 89-year-old woman with a past medical history of dementia who presents emergency department from her rehab facility at [facility] where she was recently admitted after being seen in emergency department for a fall where she was found to have bilateral wrist fractures now presents emergency department with right-sided weakness which is believed to be new where she was noticed to be dragging her right foot around 4 AM last night but then this morning exhibited right upper extremity weakness and there was question of a facial droop per HPI. Of note per initial report it was apparent that the patient's last known well was at best last night around 930 when she went to bed however later it was clarified by the patient's family that even at 6 PM yesterday she was observed to not be able to raise her right leg. Thus, the patient certainly was outside of the TPA window and therefore no indication for stroke alert. On arrival the patient is no acute distress, afebrile with blood pressure 200s/100s and otherwise with stable vital signs. She is pleasantly and mildly confused but with fluent speech without word finding difficulty. Her face is symmetric. She has 4+/5 strength of the right upper extremity and 3/5 strength of the right lower extremity. Reflexes within normal limits. A CTA of the head and neck was performed and did demonstrate extensive cerebrovascular disease including high-grade stenosis of the right posterior cerebral artery, mild to moderate multifocal narrowing of bilateral MCAs. As well as high-grade stenosis of the A2 segment of the left IRMA. An old left temporal infarct is also appreciated. However the patient and family are unaware of any prior strokes. EKG without overt acute ischemia. Chest x-ray negative for acute process. WBC, H/H and platelets within normal limits. Chemistry without acidosis. BUN/creatinine> 20 consistent with the patient's clinically dry appearance. Electrolytes and LFTs otherwise unremarkable. Troponin negative/undetectable. UA without convincing evidence of infection. Given no proximal large vessel occlusion no targets appreciated that would be amenable for endovascular intervention. However, reasonable to admit the patient for further stroke evaluation including MRI. The patient and family at the bedside are agreeable with this. Case was discussed with Dr. Manning, [facility] hospitalist, who evaluate the patient for admission. Impression & Plan Right sided weakness, Dementia, History of cerebrovascular accident, History of recent fall Discharge Plan Visit Data *Final* Discharge Date/Time: 12/13/19 15:48 Chief Complaint: Stroke/CVA Symptoms Stated Complaint: stroke symptoms ED Provider: Mohsen Singh Discharge Problem: Right sided weakness, Dementia, History of cerebrovascular accident, History of recent fall Patient Disposition: Admitted As Inpatient Discharge Instructions Interventions: ED Discharge Assessment Last Done: 12/13/19 15:48 The scribe's documentation has been prepared under my direction and personally reviewed by me in its entirety. I confirm that the note above accurately reflects all work, treatment, procedures, and medical decision making performed by me.
[2019-12-13] MEDS ORDERED: LABETALOL HCL IV 5 MG/ML 20ML IV STA (18:05)
[2019-12-13] MEDS ORDERED: ASPIRIN 300 MG SUPP PR ONE (18:15)
[2019-12-13] MEDS ORDERED: GADOBUTROL 65ML VIAL IV PRN (19:20)
--- NOTE | 2019-12-13 19:57 | Magnetic Resonance Report ---
MRI OF THE BRAIN COMBO CLINICAL HISTORY: Right-sided weakness. COMPARISON STUDY: CT of the brain dated 12/13/2019. TECHNIQUE: MRI of the brain was performed utilizing various T1 and T2-weighted sequences in the axial , sagittal, and coronal planes. Contrast-enhanced sequences were acquired following the administratio n of 5.3 cc of Gadavist. FINDINGS: Brain parenchyma: There is age-related involutional change noting advanced confluent subcortical and periventricular microangiopathic disease. There are small foci of restricted diffusion identified in the left external capsule, the left bassett radiata, and the right occipital cortex consistent acute t o subacute ischemia. There is no hemorrhage or mass effect. Foci of left temporal and right occipital encephalomalacia are consistent with a remote infarct. No enhancing mass lesion is identified on the postcontrast images. No extra-axial fluid collection is seen. The cerebellar tonsils are normal in c onfiguration. There is nonspecific pachymeningeal thickening and enhancement, greatest along the left convexity. Ventricles, sulci, and cisterns: Prominent secondary to involutional change. Pituitary and sella: Unremarkable. Intracranial vasculature: Normal flow voids are maintained at the skull base. Orbits: The bony orbits are grossly intact. Orbital contents are normal in appearance. Sinuses and mastoids: Trace fluid is noted in the left sphenoid sinus. The remaining paranasal sinuse s are clear. There is a trace right mastoid effusion. Calvarium: Unremarkable. Cervical cord: Partially visualized cervical spinal cord is normal in morphology and signal intensity . IMPRESSION: 1. There are several small foci of restricted diffusion identified as above consistent with acute to subacute ischemia. The distribution suggests an embolic etiology. 2. There is no hemorrhage or mass effect. 3. Senescent changes and remote infarcts as above. 4. There is nonspecific pachymeningeal thickening and enhancement, greatest along the left convexity. Clinical correlation will be required. ACT 112: Negative or not required by law. Electronically signed by: García Avila M.D. 12/13/2019 7:55 PM
[2019-12-13] MEDS ORDERED: LACTATED RINGER'S 1,000 ML IV SCH (20:45)
[2019-12-13] MEDS: LABETALOL HCL 300 MG in DEXTROSE 5% 240 ML IV SCH (21:30)
[2019-12-13] MEDS: SIMVASTATIN 20 MG TAB PO SCH (21:31)
[2019-12-13] MEDS: INSULIN ASPART 100 UNITS/ML 3 ML PEN SC SCH (21:31)
[2019-12-14] MEDS ORDERED: Nursing to Pharmacy Communication ONE (00:06)
[2019-12-14] MEDS: LEVOTHYROXINE SODIUM 125 MCG TABLET PO SCH ×2 (05:51→05:53)
[2019-12-14 05:53] LABS: Basophils # (auto) 0.01 K/uL (0-0.2); Basophils % (auto) 0.1 %; Eosinophils # (auto) 0.08 K/uL (0-0.5); Eosinophils % (auto) 1.1 %; Hematocrit (blood only) 35.8 % (37-47); Hemoglobin 12.2 g/dL (12.0-16.0); Immature Granulocytes # (auto) 0.04 K/uL (0.00-0.02); Immature Granulocytes % (auto) 0.5 %; Lymphocytes # (auto) 1.52 K/uL (1.2-3.4); Lymphocytes % (auto) 20.3 %; Mean Corpuscular Hemoglobin 30.8 pg (25-34); Mean Corpuscular Hgb Conc 34.1 g/dL (32-36); Mean Corpuscular Volume 90.4 fL (80-100); Monocytes # (auto) 0.67 K/uL (0.11-0.59); Neutrophils # (auto) 5.15 K/uL (1.4-6.5); Platelet Count 251 K/uL (130-400); RDW Coefficient of Variation 13.6 % (11.5-14.5); RDW Standard Deviation 44.7 fL (36.4-46.3); Red Blood Count 3.96 M/uL (4.2-5.4); White Blood Count 7.47 K/uL (4.8-10.8)
[2019-12-14] MEDS: INSULIN ASPART 100 UNITS/ML 3 ML PEN SC SCH ×4 (05:54→17:59)
[2019-12-14 06:28] LABS: BUN Creatinine Ratio 27.8 (10-20); Calcium 8.5 mg/dl (8.5-10.1); Creatinine Clr Calc Pharmacy 37.7 ml/min; Est GFR (African American) 69.4; Est GFR (Non-African American) 59.9; Potassium 3.9 mmol/L (3.5-5.1)
[2019-12-14 06:50] LABS: Estimated Average Glucose 146 mg/dl; Hemoglobin A1C 6.7 % (4.5-5.6)
[2019-12-14] MEDS ORDERED: LOSARTAN POTASSIUM 50 MG TAB PO SCH (09:00)
[2019-12-14] MEDS: ASPIRIN 81 MG ECTAB PO SCH ×2 (09:14→10:31)
[2019-12-14] MEDS: ESCITALOPRAM OXALATE 10 MG TAB PO SCH (09:14)
[2019-12-14] MEDS: HEPARIN SOD 5,000 UNIT/0.5 ML VIAL SQ SCH ×2 (09:16→21:16)
--- NOTE | 2019-12-14 09:57 | Neurology Consultation ---
Date of Consultation December 14, 2019 Assessment & Plan (1) Stroke: Acute multifocal infarcts potentially consistent with embolic phenomena. Stroke risk factors for this patient include diabetes mellitus, hypertension, and a history of hyperlipidemia. I agree with the addition of daily low-dose aspirin to her medication regimen. Her recent hemoglobin A 1C suggest that her diabetes has been reasonably well controlled. Although her lipid panel appears to be within normal limits I agree with the addition of Zocor to her medication regimen. The observed high-grade stenosis of the right posterior cerebral artery is likely clinically significant and may correlate with the recently obs erved right occipital infarct. Fortunately, this infarct appears small and she does not have an obvious visual field deficit with simple bedside confrontation testing. Outpatient ophthalmological assessment with visual field evaluation would be useful. Further, there is no specific treatment for significant intracranial arterial stenosis other than antiplatelet and statin therapy. The observed high-grade stenosis of the left A2 segment of the anterior cerebral artery appears to be an incidental finding at this point in time. Likewise, the 5 mm saccular outpouching at the basilar tip is stable compared with 2016 and is also an incidental finding. Please order an echocardiogram with bubble study if not already done so. May also need to consider an outpatient 30-day event monitor to exclude atrial fibrillation. Continue medical management of hypertension. Current systolic blood pressure goal 140 to 160 mmHg. Consultations with PT/OT/speech therapy No further immediate recommendations. History of Present Illness Reason for Consultation: Stroke Requesting Physician: Edwin Manning MD Attending Physician: Ten Mckeon History of Present Illness The patient is an 89-year-old female [facility] resident who was noted to have right-sided weakness and dysarthria at around 4 AM, 7 hours prior to arrival in the emergency department. Timing of symptom onset unknown. Her symptoms have been persistent. Past medical history notable for dementia, diabetes mellitus, and hypertension. Recent admission to [facility] noted for a fall complicated by a right radial fracture noted. The patient was notably hypertensive at the time of presentation. His serum glucose was only mildly elevated. An electrocardiogram revealed a normal sinus rhythm. 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 CT angiography of the head and neck revealed atherosclerosis and multifocal stenoses as described below. An MRI of the brain has revealed acute infarcts within the left periventricular region/external capsule, and right occipital lobe. Imaging described below in further detail. This morning, the patient continues to report right-sided weakness. She is a somewhat unreliable historian, however, in light of her history of dementia. She is unable to provide further specific details pertaining to her history of present illness. Allergies Allergy/AdvReac Type Severity Reaction Status Date / Time No Known Allergies Allergy Unverified 12/13/19 11:53 Home Medications Home Medications Medication Instructions Recorded Confirmed Type escitalopram oxalate 10 mg PO QAM 12/05/19 12/13/19 History levothyroxine 125 mcg PO QAM 12/05/19 12/13/19 History metformin 500 mg PO QPM 12/05/19 12/13/19 History insulin glargine [Lantus Solostar 10 unit SC QAM #3 ml 12/10/19 12/13/19 Rx U-100 Insulin] losartan 50 mg PO QAM 12/13/19 12/13/19 History Patient History Medical History Dementia Diabetes mellitus type II, controlled Hyperlipidemia Hypertension Hypothyroid Surgical History H/O: hysterectomy (Resolved) Social History Preferred Language: Taiwanese Communication Ability: Effective Department Store Manager Required: No Beliefs That Will Affect Care: None Current Living Situation: Personal Care Facility Other Information That Helps Us Care for You: No Feels Safe at Home: Yes Safety Concerns: Feels Safe At This Time Smoking Status: Never smoker Hx Alcohol Use: No Hx Substance Use: No Review of Systems Constitutional: no fever and no chills Eyes: no blind spots and no diplopia Ear, Nose, Mouth, Throat: no hearing loss Respiratory: no cough and no dyspnea Cardiovascular: no chest pain and no palpitations Gastrointestinal: no nausea and no vomiting Genitourinary: no dysuria Musculoskeletal: no neck pain and no myalgia Integumentary: no rash and no lesions Neurologic: as per Subjective / HPI Psychiatric: no depression and no anxiety Hematologic / Lymphatic: + easy bruising Physical Exam Physical Exam: The patient is a well-developed elderly female. She is alert and oriented to person and hospital only. Recent memory impaired. Remote memory intact. Attention intact. Concentration impaired. Patient is able to name objects and repeat phrases. Patient has a limited fund of knowledge pertaining to her history of present illness. Normal comprehension of vocabulary. Visual ambrose full to confrontation. Visual acuity normal. Pupils equal round reactive to light and accommodation. Eye movements normal. There is no nystagmus, ptosis, or ophthalmoplegia. Facial sensation intact. There is no facial droop. Hearing intact. Palate elevates to midline. Shoulder shrug intact. Tongue protrudes to midline. Sensation intact all modalities in all 4 limbs. Deep tendon reflexes are relatively brisk for the right arm and leg. Right plantar response equivocal, left plantar response downgoing. There is dysmetria qqdhfj-sn-wvwc and jptg-sm-euwg on the right. No dysmetria with gsdmsy-gf-kfcz or ldyd-fe-hrwn on the left. Ophthalmoscopic examination reveals normal-appearing optic disks and posterior segments. No papilledema or hemorrhages. Carotid pulses normal bilaterally, no bruits to auscultation. Gait and station not tested due to safety concerns. Patient exhibits a mild right hemiparesis affecting the arm and leg in an equal fashion. Strength of the left arm and leg are normal. Muscle tone normal throughout. There is no atrophy. No abnormal movements observed. Results & Data Vital Signs (Past 12 Hours) Vital Signs Temp Pulse Resp BP Pulse Ox 12/14/19 07:04 37.0 C 58 L 18 149/67 H 95 12/14/19 05:54 140/69 12/14/19 05:15 139/80 12/14/19 02:45 58 L 114/59 L 12/14/19 02:30 60 116/56 L 12/14/19 02:22 36.9 C 64 16 91/56 L 95 12/14/19 02:15 61 134/71 12/14/19 01:45 62 134/71 12/14/19 01:30 57 L 108/54 L 12/14/19 01:00 63 112/55 L 12/14/19 00:45 120/62 12/14/19 00:30 119/77 12/14/19 00:15 58 L 107/67 12/14/19 00:00 103/59 L 12/13/19 23:48 60 107/53 L 12/13/19 23:30 60 114/57 L 12/13/19 23:08 36.5 C 60 16 100/49 L 92 Laboratory Results WBC 7.47, hemoglobin 12.2, hematocrit 35.8, platelet count 251, sodium 136, potassium 3.9, BUN 24, creatinine 0.87, glucose 117, hemoglobin A1c 6.7, calcium 8.5, triglycerides 96, cholesterol 123, LDL 50, VLDL 19, HDL [address] of the head is negative for hemorrhage or acute process. There is evidence of chronic cerebrovascular disease as well as an old left temporal lobe infarct. I reviewed the images as well as the radiologist interpretation of this test. 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 There is mild to moderate multifocal luminal narrowing of the bilateral middle cerebral arteries. There is a focal short segment area of high-grade stenosis involving the left A2 segment of the anterior cerebral artery. There is mild mixed plaque at the carotid bulbs, without significant stenosis. MRI of the brain reveals an acute infarct within the left external capsule, left bassett radiata, and right occipital cortex. There is no hemorrhage. There is an area of left temporal and right occipital encephalomalacia consistent with remote infarcts. There is nonspecific pachymeningeal thickening and enhancement along the left cerebral convexity of undetermined significance. I reviewed the images as well as the radiologist interpretation of this test. An electrocardiogram reveals a normal sinus rhythm, 68 bpm. PG Care Time/CCT Total # of Minutes Spent Total Time Spent with Patient: T
[2019-12-14] MEDS: INSULIN GLARGINE SOLOSTAR 100 UNITS/ML 3 ML PEN SC SCH (10:26)
--- NOTE | 2019-12-14 10:32 | XCELERA ---
[id number] \\[id number]\[id number]
[2019-12-14] MEDS: SIMVASTATIN 20 MG TAB PO SCH (19:40)
[2019-12-14] MEDS: LABETALOL HCL 300 MG in DEXTROSE 5% 240 ML IV SCH ×2 (20:10→20:16)
[2019-12-14] MEDS ORDERED: HydrALAZINE HCL 20 MG/ML VIAL IV PRN (20:36)
[2019-12-14] MEDS: VALSARTAN 80 MG TAB PO SCH (21:16)
--- NOTE | 2019-12-14 22:26 | Hospitalist Progress Note ---
Date of Service December 14, 2019 Assessment & Plan (1) Stroke: Likely embolic CVASuspected left sided infarct. MRI brain which confirms stroke. Echo had negative bubble study. LDL is already 50. Will not switch to high intensity statin due to risk of hemorrhage with lower LDL. Appreciate Neuro input. Consult neurology (2) Hypertensive emergency: will place on valsartan, BP remains above goal. (3) Diabetes mellitus type II, controlled: Recent A1C 6.8. Will hold metformin and add insulin sliding scale for correction only. (4) Hyperlipidemia: Continue simvastatin, (5) Hypothyroid: Continue levothyroxine (6) Nondisplaced fracture of distal end of right radius: Will need to check when she is due to see ortho and have cast changed if she stays for a few days, or make sure set up with outpatient follow up. (7) Displaced fracture of distal end of left radius: as above. (8) DVT prophylaxis: Heparin 5000 units SQ BID Subjective Patient is a poor historian. Patient refers having weakness on her right side. Review of Systems Review of Systems: All systems reviewed & are unremarkable except as noted in HPI & below Physical Exam Physical Exam: Constitutional: well developed; + not well nourished and no acute distress Eyes: PERRL, conjunctivae normal, anicteric sclerae ENMT: external ear and nose normal, oropharynx normal Neck: trachea midline, no thyromegaly Gastrointestinal (Abdomen): normal bowel sounds, soft, nontender, no hepatosplenomegaly Musculoskeletal: Bilateral upper extremities in casts, neck in soft collar. Skin: no rashes, warm and dry Neurologic: + focal motor deficit (RLE > RUE weakness (RUE in cast)), awake Speech / Cognition: normal speech Motor/Sensory: + pronator drift (right sided); Coordination: + abnormal sdbmcj-bv-tltj test (right sided reduced UE co-ordination) Psychiatric: Orientation: alert and cooperative; + not oriented x 3 Eye Contact: good eye contact Lymphatic: no cervical or axillary lymphadenopathy Results & Data Vital Signs (Past 12 Hours) Vital Signs Temp Pulse Pulse Resp BP BP Pulse Ox 12/14/19 19:12 36.7 C 60 19 197/75 H 94 12/14/19 15:32 12/14/19 15:19 36.4 C L 56 L 18 197/99 H 96 12/14/19 15:17 52 L 12/14/19 11:19 36.7 C 57 L 18 141/77 H 94 Pulse Ox 12/14/19 19:12 12/14/19 15:32 94 12/14/19 15:19 12/14/19 15:17 12/14/19 11:19 PG Care Time/CCT Total # of Minutes Spent Total Time Spent with Patient: Total time spent is greater than 50% in coordination of care (as documented) at patient's floor/unit and/or counseling patient: (1) Hyperlipidemia Hyperlipidemia type: unspecified Qualified Code(s): E78.5 - Hyperlipidemia, unspecified (2) Hypothyroid Hypothyroidism type: unspecified Qualified Code(s): E03.9 - Hypothyroidism, unspecified (3) Diabetes mellitus type II, controlled Diabetes mellitus complication status: with unspecified complications Diabetes mellitus tank terminal gauger insulin use: without tank terminal gauger use Qualified Code(s): E11.8 - Type 2 diabetes mellitus with unspecified complications
[2019-12-15] MEDS: INSULIN ASPART 100 UNITS/ML 3 ML PEN SC SCH ×5 (00:26→21:54)
[2019-12-15] MEDS ORDERED: Nursing to Pharmacy Communication ONE (02:29)
[2019-12-15] MEDS: LEVOTHYROXINE SODIUM 125 MCG TABLET PO SCH (05:51)
[2019-12-15 07:07] LABS: Basophils # (auto) 0.02 K/uL (0-0.2); Basophils % (auto) 0.2 %; Eosinophils # (auto) 0.14 K/uL (0-0.5); Eosinophils % (auto) 1.5 %; Hematocrit (blood only) 37.6 % (37-47); Hemoglobin 12.8 g/dL (12.0-16.0); Immature Granulocytes # (auto) 0.05 K/uL (0.00-0.02); Immature Granulocytes % (auto) 0.5 %; Lymphocytes % (auto) 15.2 %; Mean Corpuscular Hemoglobin 30.8 pg (25-34); Mean Corpuscular Volume 90.6 fL (80-100); Mean Platelet Volume 10.5 fL (7.4-10.4); Monocytes # (auto) 0.81 K/uL (0.11-0.59); Monocytes % (auto) 8.8 %; Neutrophils # (auto) 6.81 K/uL (1.4-6.5); Neutrophils % (auto) 73.8 %; Platelet Count 284 K/uL (130-400); RDW Coefficient of Variation 13.7 % (11.5-14.5); RDW Standard Deviation 44.9 fL (36.4-46.3); Red Blood Count 4.15 M/uL (4.2-5.4); White Blood Count 9.23 K/uL (4.8-10.8)
[2019-12-15 07:45] LABS: BUN Creatinine Ratio 28.1 (10-20); Calcium 8.8 mg/dl (8.5-10.1); Creatinine Clr Calc Pharmacy 41.5 ml/min; Est GFR (Non-African American) 67.3
[2019-12-15] MEDS ORDERED: VALSARTAN 80 MG TAB PO STA (08:15)
[2019-12-15] MEDS: AMLODIPINE BESYLATE 5 MG TAB PO SCH (09:25)
[2019-12-15] MEDS: ESCITALOPRAM OXALATE 10 MG TAB PO SCH (09:25)
[2019-12-15] MEDS: ASPIRIN 81 MG ECTAB PO SCH (09:25)
[2019-12-15] MEDS: HEPARIN SOD 5,000 UNIT/0.5 ML VIAL SQ SCH ×2 (09:27→21:54)
[2019-12-15] MEDS: INSULIN GLARGINE SOLOSTAR 100 UNITS/ML 3 ML PEN SC SCH (10:01)
[2019-12-15] MEDS: VALSARTAN 80 MG TAB PO SCH (21:53)
[2019-12-15] MEDS: SIMVASTATIN 20 MG TAB PO SCH (21:54)
--- NOTE | 2019-12-15 22:23 | Hospitalist Progress Note ---
Date of Service December 15, 2019 Assessment & Plan (1) Stroke: Likely embolic CVASuspected left sided infarct. MRI brain which confirms stroke. Echo had negative bubble study. LDL is already 50. Will not switch to high intensity statin due to risk of hemorrhage with lower LDL. Appreciate Neuro input. Consult neurology Awaiting placement. (2) Hypertensive emergency: added amlodipine continue on valsartan, BP remains above goal. (3) Diabetes mellitus type II, controlled: Recent A1C 6.8. Will hold metformin and add insulin sliding scale for correction only. (4) Hyperlipidemia: Continue simvastatin, (5) Hypothyroid: Continue levothyroxine (6) Nondisplaced fracture of distal end of right radius: Will need to check when she is due to see ortho and have cast changed if she stays for a few days, or make sure set up with outpatient follow up. (7) Displaced fracture of distal end of left radius: as above. (8) DVT prophylaxis: Heparin 5000 units SQ BID Subjective 89 yo female reports no new symptoms. She states she continues to have weakness in her right side. Review of Systems Review of Systems: All systems reviewed & are unremarkable except as noted in HPI & below Physical Exam Physical Exam: Constitutional: well developed; + not well nourished and no acute distress Eyes: PERRL, conjunctivae normal, anicteric sclerae ENMT: external ear and nose normal, oropharynx normal Neck: trachea midline, no thyromegaly Gastrointestinal (Abdomen): normal bowel sounds, soft, nontender, no hepatosplenomegaly Musculoskeletal: Bilateral upper extremities in casts, neck in soft collar. Skin: no rashes, warm and dry Neurologic: + focal motor deficit (RLE > RUE weakness (RUE in cast)), awake Speech / Cognition: normal speech Motor/Sensory: + pronator drift (right sided); Coordination: + abnormal guuwul-bx-tsiy test (right sided reduced UE co-ordination) Psychiatric: Orientation: alert and cooperative; + not oriented x 3 Eye Contact: good eye contact Lymphatic: no cervical or axillary lymphadenopathy Results & Data Vital Signs (Past 12 Hours) Vital Signs Temp Pulse Pulse Resp BP BP Pulse Ox 12/15/19 19:07 36.9 C 58 L 16 182/72 H 94 12/15/19 15:55 60 12/15/19 15:10 37.0 C 60 16 195/86 H 93 12/15/19 11:33 37.2 C 60 17 149/69 H 94 PG Care Time/CCT Total # of Minutes Spent Total Time Spent with Patient: Total time spent is greater than 50% in coordination of care (as documented) at patient's floor/unit and/or counseling patient: (1) Hyperlipidemia Hyperlipidemia type: unspecified Qualified Code(s): E78.5 - Hyperlipidemia, unspecified (2) Hypothyroid Hypothyroidism type: unspecified Qualified Code(s): E03.9 - Hypothyroidism, unspecified (3) Diabetes mellitus type II, controlled Diabetes mellitus complication status: with unspecified complications Diabetes mellitus long-term insulin use: without truck terminal manager use Qualified Code(s): E11.8 - Type 2 diabetes mellitus with unspecified complications
[2019-12-16] MEDS: LEVOTHYROXINE SODIUM 125 MCG TABLET PO SCH (05:54)
[2019-12-16 06:16] LABS: Basophils # (auto) 0.03 K/uL (0-0.2); Basophils % (auto) 0.3 %; Eosinophils # (auto) 0.11 K/uL (0-0.5); Eosinophils % (auto) 1.2 %; Hematocrit (blood only) 37.6 % (37-47); Hemoglobin 12.5 g/dL (12.0-16.0); Immature Granulocytes # (auto) 0.05 K/uL (0.00-0.02); Immature Granulocytes % (auto) 0.5 %; Lymphocytes # (auto) 1.86 K/uL (1.2-3.4); Lymphocytes % (auto) 20.3 %; Mean Corpuscular Hemoglobin 30.6 pg (25-34); Mean Corpuscular Hgb Conc 33.2 g/dL (32-36); Mean Corpuscular Volume 91.9 fL (80-100); Mean Platelet Volume 11.1 fL (7.4-10.4); Monocytes # (auto) 0.98 K/uL (0.11-0.59); Monocytes % (auto) 10.7 %; Neutrophils # (auto) 6.13 K/uL (1.4-6.5); Platelet Count 282 K/uL (130-400); RDW Coefficient of Variation 13.9 % (11.5-14.5); RDW Standard Deviation 46.1 fL (36.4-46.3); Red Blood Count 4.09 M/uL (4.2-5.4); White Blood Count 9.16 K/uL (4.8-10.8)
[2019-12-16 06:46] LABS: BUN Creatinine Ratio 30.7 (10-20); Creatinine Clr Calc Pharmacy 37.7 ml/min; Est GFR (African American) 69.4; Est GFR (Non-African American) 59.9
[2019-12-16] MEDS: ESCITALOPRAM OXALATE 10 MG TAB PO SCH (08:17)
[2019-12-16] MEDS: ASPIRIN 81 MG ECTAB PO SCH (08:17)
[2019-12-16] MEDS: HEPARIN SOD 5,000 UNIT/0.5 ML VIAL SQ SCH ×2 (08:17→20:05)
[2019-12-16] MEDS: AMLODIPINE BESYLATE 5 MG TAB PO SCH (08:18)
[2019-12-16] MEDS: INSULIN GLARGINE SOLOSTAR 100 UNITS/ML 3 ML PEN SC SCH (08:18)
[2019-12-16] MEDS: INSULIN ASPART 100 UNITS/ML 3 ML PEN SC SCH ×4 (08:19→20:06)
--- NOTE | 2019-12-16 16:07 | Orthopedic Consultation ---
Date of Consultation December 16, 2019 Assessment & Plan (1) Displaced fracture of distal end of left radius: With regards to her wrist, we will going to leave her in the splints for now. She will need casting in the office. The splint seem to be well fitting. With regards to the cervical collar, I did speak personally with Dr. Foss. We reviewed the CT scans and feel she is safe to discontinue the cervical collar. She is not having much cervical pain at this time. She is orthopedically stable for discharge when medically ready. She will follow-up in my office this week for application of a cast. Our office phone number is [phone]. Present on Admission?: Yes (2) Nondisplaced fracture of distal end of right radius: Present on Admission?: Yes (3) Closed fracture of spinous process of cervical vertebra: Present on Admission?: Yes History of Present Illness Reason for Consultation: Bilateral wrist fractures Attending Physician: Ten Mckeon History of Present Illness Kathy is a pleasant 89-year-old female who sustained bilateral wrist fractures after a fall about 10 days ago. I saw her in consultation previously. She was in bilateral splints. She was supposed to follow-up in my office this week for splint removal and casting. Unfortunately she may have suffered a stroke. She is admitted back to the hospital and orthopedics was consulted to evaluate and treat. Allergies Allergy/AdvReac Type Severity Reaction Status Date / Time No Known Allergies Allergy Unverified 12/13/19 11:53 Home Medications Home Medications Medication Instructions Recorded Confirmed Type escitalopram oxalate 10 mg PO QAM 12/05/19 12/13/19 History levothyroxine 125 mcg PO QAM 12/05/19 12/13/19 History metformin 500 mg PO QPM 12/05/19 12/13/19 History insulin glargine [Lantus Solostar 10 unit SC QAM #3 ml 12/10/19 12/13/19 Rx U-100 Insulin] losartan 50 mg PO QAM 12/13/19 12/13/19 History Patient History Medical History Dementia Diabetes mellitus type II, controlled Hyperlipidemia Hypertension Hypothyroid Surgical History H/O: hysterectomy (Resolved) Social History Preferred Language: Indonesian Communication Ability: Effective 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 She has bilateral splints in place. Her left forearm has a coaptation splint. Her right forearm has a volar splint. She is wearing a cervical hunter ar. Results & Data Vital Signs (Past 12 Hours) Vital Signs Temp Pulse Resp BP BP Pulse Ox 12/16/19 15:43 37.2 C 63 19 168/88 H 95 12/16/19 11:18 36.9 C 62 16 154/81 H 94 12/16/19 07:33 37.0 C 60 18 182/95 H 95 PG Care Time/CCT Total # of Minutes Spent Total Time Spent with Patient: Total time spent is greater than 50% in coordination of care (as documented) at patient's floor/unit and/or counseling patient: Coding Level of Care Code 79648 Inpt Consult Level 3 Diagnoses Displaced fracture of distal end of left radius S52.502A Nondisplaced fracture of distal end of right radius S52.501A Closed fracture of spinous process of cervical vertebra S12.9XXA Encounter type: initial encounter (1) Closed fracture of spinous process of cervical vertebra Encounter type: initial encounter Qualified Code(s): S12.9XXA - Fracture of neck, unspecified, initial encounter
[2019-12-16] MEDS: SIMVASTATIN 20 MG TAB PO SCH (20:05)
[2019-12-16] MEDS: VALSARTAN 80 MG TAB PO SCH (20:05)
--- NOTE | 2019-12-16 22:01 | Hospitalist Progress Note ---
Date of Service December 16, 2019 Assessment & Plan (1) Stroke: Likely embolic CVASuspected left sided infarct. MRI brain which confirms stroke. Echo had negative bubble study. LDL is already 50. Will not switch to high intensity statin due to risk of hemorrhage with lower LDL. Appreciate Neuro input. Consult neurology Awaiting placement. (2) Hypertensive emergency: added amlodipine continue on valsartan, BP remains above goal. (3) Diabetes mellitus type II, controlled: Recent A1C 6.8. Will hold metformin and add insulin sliding scale for correction only. (4) Hyperlipidemia: Continue simvastatin, (5) Hypothyroid: Continue levothyroxine (6) Nondisplaced fracture of distal end of right radius: Awaiting input from Neuro (7) Displaced fracture of distal end of left radius: as above. (8) DVT prophylaxis: Heparin 5000 units SQ BID Subjective Patient has no new complaints. Review of Systems Review of Systems: Unobtainable due to mental health condition Physical Exam Physical Exam: Constitutional: well developed; + not well nourished and no acute distress Eyes: PERRL, conjunctivae normal, anicteric sclerae ENMT: external ear and nose normal, oropharynx normal Neck: trachea midline, no thyromegaly Gastrointestinal (Abdomen): normal bowel sounds, soft, nontender, no hepatosplenomegaly Musculoskeletal: Bilateral upper extremities in casts, neck in soft collar. Skin: no rashes, warm and dry Neurologic: + focal motor deficit (RLE > RUE weakness (RUE in cast)), awake Speech / Cognition: normal speech Motor/Sensory: + pronator drift (right sided); Coordination: + abnormal huobvu-jc-bdly test (right sided reduced UE co-ordination) Psychiatric: Orientation: alert and cooperative; + not oriented x 3 Eye Contact: good eye contact Lymphatic: no cervical or axillary lymphadenopathy Results & Data Vital Signs (Past 12 Hours) Vital Signs Temp Pulse Resp BP Pulse Ox 12/16/19 19:25 36.7 C 66 19 153/74 H 95 12/16/19 15:43 37.2 C 63 19 168/88 H 95 12/16/19 11:18 36.9 C 62 16 154/81 H 94 PG Care Time/CCT Total # of Minutes Spent Total Time Spent with Patient: Total time spent is greater than 50% in coordination of care (as documented) at patient's floor/unit and/or counseling patient: (1) Hyperlipidemia Hyperlipidemia type: unspecified Qualified Code(s): E78.5 - Hyperlipidemia, unspecified (2) Hypothyroid Hypothyroidism type: unspecified Qualified Code(s): E03.9 - Hypothyroidism, unspecified (3) Diabetes mellitus type II, controlled Diabetes mellitus complication status: with unspecified complications Diabetes mellitus halfway insulin use: without tank terminal gauger use Qualified Code(s): E11.8 - Type 2 diabetes mellitus with unspecified complications
[2019-12-17] MEDS: LEVOTHYROXINE SODIUM 125 MCG TABLET PO SCH (06:03)
[2019-12-17] MEDS: INSULIN ASPART 100 UNITS/ML 3 ML PEN SC SCH ×4 (08:03→22:03)
[2019-12-17] MEDS: ASPIRIN 81 MG ECTAB PO SCH (08:04)
[2019-12-17] MEDS: HEPARIN SOD 5,000 UNIT/0.5 ML VIAL SQ SCH ×2 (08:04→22:24)
[2019-12-17] MEDS: INSULIN GLARGINE SOLOSTAR 100 UNITS/ML 3 ML PEN SC SCH (08:06)
[2019-12-17] MEDS: AMLODIPINE BESYLATE 5 MG TAB PO SCH (08:07)
[2019-12-17] MEDS: ESCITALOPRAM OXALATE 10 MG TAB PO SCH (08:07)
--- NOTE | 2019-12-17 09:49 | Orthopedic Progress Note ---
Date of Service December 17, 2019 Assessment & Plan (1) Nondisplaced fracture of distal end of right radius: With regards to her cervical spine, I spoke personally with Dr. Foss, and we agree that she can be treated conservatively without any neck braces.She can follow-up with me regarding her cervical spine and does not need to follow- up with the spine team. With regards to her left wrist she will likely need a cast. I will leave her on the call patient splint for now. This seems to be well fitting. I can place her in a cast my office this week. With regards to her right wrist, she will likely need removal of the splint and application of a cock-up wrist splint. We can do that at the office as well. She is orthopedically stable for discharge when medically ready. She can use her fingers but she should avoid gripping or lifting with her hands. She can put a little bit of weight on her wrist if she is comfortable and if it helps her with using a walker. She can follow-up in my office this week. Please call to make an appointment. Our office phone number is [phone]. Present on Admission?: Yes (2) Displaced fracture of distal end of left radius: Present on Admission?: Yes (3) Closed fracture of spinous process of cervical vertebra: Present on Admission?: Yes Sonja Chavez was seen and examined at bedside this morning. Fortunately, she was a little bit more awake and alert than she was yesterday. She says she is having no neck pain. She is having some soreness in her wrist but it is not too bad. She has no complaints. Review of Systems Review of Systems: All systems reviewed & are unremarkable except as noted in HPI & below Physical Exam Constitutional: WD/WN, vitals as above Eyes: PERRL, conjunctivae normal, anicteric sclerae ENMT: external ear and nose normal, oropharynx normal Neck: trachea midline, no thyromegaly Respiratory: normal respiratory effort Cardiovascular: RRR, no murmur, no edema Gastrointestinal (Abdomen): normal bowel sounds, soft, nontender, no hepatosplenomegaly Musculoskeletal: On physical examination of her cervical spine, she has good range of motion and no pain. On examination of her left wrist she has a coaptation splint in place. She is little swelling of her fingers. On physical examination of her right wrist, she has a volar splint in place. She has a little bit of swelling of her fingers as well. Psychiatric: A+Ox3, euthymic affect Results & Data Vital Signs (Past 12 Hours) Vital Signs Temp Pulse Resp BP Pulse Ox 12/17/19 08:00 36.5 C 60 20 162/83 H 96 12/17/19 03:17 37.8 C H 59 L 19 177/84 H 95 12/16/19 23:11 37.2 C 59 L 18 158/85 H 96 PG Care Time/CCT Total # of Minutes Spent Total Time Spent with Patient: Total time spent is greater than 50% in coordination of care (as documented) at patient's floor/unit and/or counseling patient: Coding Level of Care Code 89369 Subseq Hosp Care Lvl 3 Diagnoses Nondisplaced fracture of distal end of right radius S52.501A Displaced fracture of distal end of left radius S52.502A Closed fracture of spinous process of cervical vertebra S12.9XXA Encounter type: initial encounter (1) Closed fracture of spinous process of cervical vertebra Encounter type: initial encounter Qualified Code(s): S12.9XXA - Fracture of neck, unspecified, initial encounter
--- NOTE | 2019-12-17 19:31 | Hospitalist Progress Note ---
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 MRI brain which confirms stroke. Echo had negative bubble study. LDL is already 50. Will not switch to high intensity statin due to risk of hemorrhage with lower LDL. Appreciate Neuro input. Awaiting placement. (2) Hypertensive emergency: added amlodipine continue on valsartan, BP remains above goal. (3) Diabetes mellitus type II, controlled: Recent A1C 6.8. Will hold metformin and add insulin sliding scale for correction only. (4) Hyperlipidemia: Continue simvastatin, (5) Hypothyroid: Continue levothyroxine (6) Nondisplaced fracture of distal end of right radius: Awaiting input from Neuro (7) Displaced fracture of distal end of left radius: as above. (8) DVT prophylaxis: Heparin 5000 units SQ BID Subjective Patient reports no new symptoms as of yet. Review of Systems Review of Systems: All systems reviewed & are unremarkable except as noted in HPI & below Physical Exam Physical Exam: Constitutional: well developed; + not well nourished and no acute distress Eyes: PERRL, conjunctivae normal, anicteric sclerae ENMT: external ear and nose normal, oropharynx normal Neck: trachea midline, no thyromegaly Gastrointestinal (Abdomen): normal bowel sounds, soft, nontender, no hepatosplenomegaly Musculoskeletal: Bilateral upper extremities in casts, neck in soft collar. Skin: no rashes, warm and dry Neurologic: + focal motor deficit (RLE > RUE weakness (RUE in cast)), awake Speech / Cognition: normal speech Motor/Sensory: + pronator drift (right sided); Coordination: + abnormal [id number] test (right sided reduced UE co-ordination) Psychiatric: Orientation: alert and cooperative; + not oriented x 3 Eye Contact: good eye contact Lymphatic: no cervical or axillary lymphadenopathy Results & Data Vital Signs (Past 12 Hours) Vital Signs Temp Pulse Resp BP Pulse Ox 12/17/19 18:58 37.3 C 65 19 144/65 H 94 12/17/19 15:30 37.2 C 66 19 154/93 H 95 12/17/19 11:33 37 C 62 16 150/77 H 96 12/17/19 08:00 36.5 C 60 20 162/83 H 96 PG Care Time/CCT Total # of Minutes Spent Total Time Spent with Patient: Total time spent is greater than 50% in coordination of care (as documented) at patient's floor/unit and/or counseling patient: (1) Hyperlipidemia Hyperlipidemia type: unspecified Qualified Code(s): E78.5 - Hyperlipidemia, unspecified (2) Hypothyroid Hypothyroidism type: unspecified Qualified Code(s): E03.9 - Hypothyroidism, unspecified (3) Diabetes mellitus type II, controlled Diabetes mellitus complication status: with unspecified complications Diabetes mellitus emt intermediate insulin use: without emt intermediate use Qualified Code(s): E11.8 - Type 2 diabetes mellitus with unspecified complications
[2019-12-17] MEDS: VALSARTAN 80 MG TAB PO SCH (22:23)
[2019-12-17] MEDS: SIMVASTATIN 20 MG TAB PO SCH (22:24)
[2019-12-18] MEDS: LEVOTHYROXINE SODIUM 125 MCG TABLET PO SCH (06:19)
[2019-12-18] MEDS: INSULIN ASPART 100 UNITS/ML 3 ML PEN SC SCH ×4 (07:50→21:15)
[2019-12-18] MEDS: ASPIRIN 81 MG ECTAB PO SCH (07:52)
[2019-12-18] MEDS: HEPARIN SOD 5,000 UNIT/0.5 ML VIAL SQ SCH ×2 (07:52→21:18)
[2019-12-18] MEDS: ESCITALOPRAM OXALATE 10 MG TAB PO SCH (07:53)
[2019-12-18] MEDS: INSULIN GLARGINE SOLOSTAR 100 UNITS/ML 3 ML PEN SC SCH (07:53)
[2019-12-18] MEDS: AMLODIPINE BESYLATE 5 MG TAB PO SCH (07:53)
[2019-12-18] MEDS: SIMVASTATIN 20 MG TAB PO SCH (21:12)
[2019-12-18] MEDS: VALSARTAN 80 MG TAB PO SCH (21:12)
--- NOTE | 2019-12-18 21:43 | Hospitalist Progress Note ---
Date of Service December 18, 2019 Assessment & Plan (1) Stroke: Likely embolic CVASuspected left sided infarct. MRI brain which confirms stroke. Echo had negative bubble study. LDL is already 50. Will not switch to high intensity statin due to risk of hemorrhage with lower LDL. Appreciate Neuro input. Awaiting placement. (2) Hypertensive emergency: added amlodipine continue on valsartan, BP remains above goal. (3) Diabetes mellitus type II, controlled: Recent A1C 6.8. Will hold metformin and add insulin sliding scale for correction only. (4) Hyperlipidemia: Continue simvastatin, (5) Hypothyroid: Continue levothyroxine (6) Nondisplaced fracture of distal end of right radius: appreciate input from ortho will need to followup closely as an outpatient. removed neck collar (7) Displaced fracture of distal end of left radius: as above. (8) DVT prophylaxis: Heparin 5000 units SQ BID Subjective Patient reports feeling well except for having right sided weakness. Patient is interested in going to rehab. Family is at bedside and is updated. Review of Systems Review of Systems: All systems reviewed & are unremarkable except as noted in HPI & below Physical Exam Physical Exam: Constitutional: well developed; + not well nourished and no acute distress Eyes: PERRL, conjunctivae normal, anicteric sclerae ENMT: external ear and nose normal, oropharynx normal Neck: trachea midline, no thyromegaly Gastrointestinal (Abdomen): normal bowel sounds, soft, nontender, no hepatosplenomegaly Musculoskeletal: Bilateral upper extremities in casts. Skin: no rashes, warm and dry Neurologic: + focal motor deficit (RLE > RUE weakness (RUE in cast)), awake Speech / Cognition: normal speech Motor/Sensory: + pronator drift (right sided); Coordination: + abnormal [id number] test (right sided reduced UE co-ordination) Psychiatric: Orientation: alert and cooperative; + not oriented x 3 Eye Contact: good eye contact Lymphatic: no cervical or axillary lymphadenopathy Results & Data Vital Signs (Past 12 Hours) Vital Signs Temp Pulse Pulse Resp BP BP Pulse Ox 12/18/19 19:04 36.7 C 62 18 169/71 H 96 12/18/19 17:21 36.7 C 67 18 160/78 H 94 12/18/19 16:00 36.8 C 66 18 129/74 97 12/18/19 11:16 36.8 C 65 18 145/69 H 95 PG Care Time/CCT Total # of Minutes Spent Total Time Spent with Patient: Total time spent is greater than 50% in coordination of care (as documented) at patient's floor/unit and/or counseling patient: (1) Hyperlipidemia Hyperlipidemia type: unspecified Qualified Code(s): E78.5 - Hyperlipidemia, unspecified (2) Hypothyroid Hypothyroidism type: unspecified Qualified Code(s): E03.9 - Hypothyroidism, unspecified (3) Diabetes mellitus type II, controlled Diabetes mellitus complication status: with unspecified complications Diabetes mellitus long term care social worker insulin use: without long term care social worker use Qualified Code(s): E11.8 - Type 2 diabetes mellitus with unspecified complications
[2019-12-19] MEDS: LEVOTHYROXINE SODIUM 125 MCG TABLET PO SCH (05:52)
[2019-12-19] MEDS: ASPIRIN 81 MG ECTAB PO SCH (08:06)
[2019-12-19] MEDS: ESCITALOPRAM OXALATE 10 MG TAB PO SCH (08:06)
[2019-12-19] MEDS: AMLODIPINE BESYLATE 5 MG TAB PO SCH (08:07)
[2019-12-19] MEDS: HEPARIN SOD 5,000 UNIT/0.5 ML VIAL SQ SCH (08:07)
[2019-12-19] MEDS: INSULIN GLARGINE SOLOSTAR 100 UNITS/ML 3 ML PEN SC SCH (08:08)
[2019-12-19] MEDS: INSULIN ASPART 100 UNITS/ML 3 ML PEN SC SCH ×2 (08:09→12:01)
[2019-12-19] MEDS ORDERED: STROKE PATIENT DISCHARGE STA (12:57)
--- NOTE | 2019-12-19 16:30 | Discharge Summary ---
Date of Service December 19, 2019 Admission HPI Per Admitting Provider Kathy Boswell is an 89 year old female from [facility] due to right sided stroke like symptoms with last known well around 9:30pm the previous night. History from patient is limited due to dementia therefore taken from the provided documentation from [facility] and ER notes. At 4am today she woke up and was noted to have right sided leg weakness however that then progressed to her right arm and slurring of speech noticed by staff. Her BP was noted to be elevated therefore was sent via EMS to the ER to assess for acute CVA. She was recently discharged due to a fall with resultant b/l wrist fractures and C5-7 fracture in a soft collar. Principal Diagnosis Stroke Discharge Exam Constitutional WD/WN, vitals as above Eyes EOM intact bilaterally; no conjunctival abnormality ENMT external ear and nose normal, oropharynx normal Neck trachea midline, no thyromegaly normal visual inspection Respiratory normal respiratory effort, lungs clear to auscultation no respiratory distress Cardiovascular RRR, no murmur, no edema Gastrointestinal (Abdomen) Inspection/Auscultation: abdomen normal to inspection; abdomen not distended Musculoskeletal Head/Neck/Chest: + limited ROM of neck (Neck brace) Skin no rashes, warm and dry Neurologic moves all extremities and awake Psychiatric Orientation: alert, oriented to person and cooperative Discharge Data Allergies Allergy/AdvReac Type Severity Reaction Status Date / Time No Known Allergies Allergy Unverified 12/13/19 11:53 Consultations 12/13/19 13:34 ED Decision to Admit Stat 12/13/19 17:04 Consult Case Management - Discharge Planning Routine Consult Neurology Routine 12/16/19 09:00 Consult Orthopedic Surgery Routine Ordered Studies 12/13/19 11:37 CT head/brain wo con Stat 12/13/19 11:38 CT angio head w con Stat CT angio neck with con Stat 12/13/19 17:36 MR brain wo/w con Routine Hospital Course (1) Stroke: Likely embolic CVA. Suspected left sided infarct. MRI brain which confirms stroke. Echo had negative bubble study. LDL is already 50. Will not switch to high intensity statin due to risk of hemorrhage with lower LDL. - Started aspirin per neurology recs. (2) Hypertensive emergency: Added amlodipine. - Continued losartan (3) Diabetes mellitus type II, controlled: Recent A1C 6.8%. Continue metformin on discharge. (4) Hyperlipidemia: Continue simvastatin (5) Hypothyroid: Continue levothyroxine (6) Nondisplaced fracture of distal end of right radius: appreciate input from ortho will need to followup closely as an outpatient. removed neck collar (7) Displaced fracture of distal end of left radius: as above. (8) DVT prophylaxis: Heparin 5000 units SQ BID Total Time Total Time Spent Total Time Spent (In Minutes): 45 Discharge Plan Discharge Items Patient Disposition: Transfer Jail Fac Reason For Visit: STROKE LIKE SYMPTOMS Discharge Diagnosis: Stroke Activity: Resume your previous activity Non-emergency contact: Primary Care Provider Call non-emergency contact if: your symptoms worsen Follow-up/Referrals: Mahendra Johns MD [Primary Care Provider] - Diet: Carb Consistent or DM2 and Heart Healthy Addtl Attending Provider Instructions: Ms. Boswell, You were admitted with a stroke. This is a very unfortunate thing that can happen as people get older. We started you on medication to do the best we can to prevent this from happening again. Please work with the physical therapy at [facility] to do what we can to regain some strength in the right side. Pending Studies at Discharge: No Stand-Alone Forms: My [facility] [place], Smoking Cessation Skilled Items Patient informed of condition?: Yes DNR: No Discharge Level of Care: Skilled Communicable Disease: No Discharge Prognosis: Stable Lines: None Urinary Catheter: No Medications and DC Order Prescriptions: New amlodipine [Norvasc] 5 mg Tablet 5 mg PO QAM Qty: 1 RF: 0 aspirin [Ecotrin Low Strength] 81 mg Tablet,Delayed Release (Dr/Ec) 81 mg PO QAM Qty: 1 RF: 0 simvastatin 20 mg Tablet 20 mg PO PM Qty: 1 RF: 0 Continued levothyroxine 125 mcg Tablet 125 mcg PO QAM RF: 0 metformin 500 mg Tablet Extended Release 24 Hr 500 mg PO QPM RF: 0 escitalopram oxalate 10 mg Tablet 10 mg PO QAM RF: 0 Lantus Solostar U-100 Insulin 100 unit/mL (3 mL) Insulin Pen 10 unit SC QAM Qty: 3 RF: 0 losartan 25 mg tablet 50 mg PO QAM RF: 0 Discharge Orders: Discharge Order (Routine); Ordered 12/19/19 Ordered By: Lester Macias Admission Data Admit Date/Time: 12/13/19 16:38 Attending Provider: Lester Macias Admit Provider: Edwin Manning Primary Care Provider: Mahendra Johns Other Providers: Wendy Palomo ; Edwin Manning ; Daljit Shrestha ; Daljit Alonso ; Lester Macias Other Interventions: Discharge Summary Assessment (RN) Last Done: 12/19/19 12:18 DC Date/Time DO NOT enter until pt leaves facility: 12/19/19 13:27
== END 2019-12-19 13:27 | DRG 65 ==
LOC: ED 11:10 → 2E 15:48 → SUATTDRO 16:38 → 2N 12-18 15:24